=== PATIENT | male | born 1950 | race Caucasian/White ===

== ENCOUNTER 2024-11-21 11:11 | Inpatient (IN) | payer OTHER, MEDICAID ==
[~2024-11-21] VITALS: Ht 172.7 cm; Wt 73.4 kg
--- NOTE | 2024-11-21 11:50 | ED.PDOC ---
SOB-HPI HPI Comments 74 year old male presents to the ED with a chief complaint of shortness of breath onset today (11/21/24). Patient states he had LT knee surgery 3 days, woke up today experiencing nausea, vomiting, fever, chills, shortness of breath, chest pressure. Upon ED arrival, O2 sat was 95% on RA. PMHx COPD, lung cancer. Denies dizziness, headache, blurry vision, abdominal pain, diarrhea, constipation, dysuria. No other symptoms or modifying factors present at this time. Chief Complaint: Shortness of Breath Time Seen by MD: 11:35 Primary Care Provider: YOANA Crockett notes: Medications, Allergies Information Source: Patient Mode of Arrival: Ambulatory Severity: Moderate Timing: Hours Duration: Since onset Context: At Rest PE Risk Factors: Recent Surgery (Lt knee surgery 3 days ago) History of: COPD Prehospital treatment: None Associated Signs and Symptoms: Chest Pain Quality: Pressure Radiation: No Radiation Location: Chest (L) If cough with SOB: Non-Productive Past Medical History PAST MEDICAL HISTORY: Cancer (lung), COPD Surgical History (Other): LT knee surgery partial lobectomy Family History Family History: Unknown Social History Smoker: Non-Smoker Alcohol: Denies ETOH Use Drugs: Denies Drug Use Lives In: Home Constitutional: reports: chills, fever; denies: diaphoresis, fatigue, malaise, sweats, weakness, others EENTM: denies: blurred vision, double vision, ear bleeding, ear discharge, ear drainage, ear pain, ear ringing, eye pain, eye redness, hearing loss, mouth pain, mouth swelling, nasal discharge, nose bleeding, nose congestion, nose pain, photophobia, tearing, throat pain, throat swelling, voice changes, others Respiratory: reports: shortness of breath; denies: cough, hemoptysis, orthopnea, SOB at rest, SOB with excertion, stridor, wheezing, others Cardiovascular: reports: chest pain; denies: dizzy spells, diaphoresis, Dyspnea on exertion, edema, irregular heart beat, left arm pain, lightheadedness, palpitations, PND, syncope, others Gastrointestinal: reports: nausea, vomiting; denies: abdomen distended, abdominal pain, blood streaked bowels, constipated, diarrhea, dysphagia, difficulty swallowing, hematemesis, melena, poor appetite, poor fluid intake, rectal bleeding, rectal pain, others Genitourinary: denies: burning, dysuria, flank pain, frequency, hematuria, incontinence, penile discharge, penile sore, pain, testicle pain, testicle swelling, urgency, others Neurological: denies: dizziness, fainting, headache, left sided numbness, left sided weakness, numbness, paresthesia, pre-existing deficit, right sided numbness, right sided weakness, seizure, speech problems, tingling, tremors, weakness, others Musculoskeletal: denies: back pain, gout, joint pain, joint swelling, muscle pain, muscle stiffness, neck pain, others Integumetry: denies: bruises, change in color, change in hair/nails, dryness, laceration, lesions, lumps, rash, wounds, others Allergic/Immunocompromised: denies: Difficulty Healing, Frequent Infections, Hives, Itching, others Hematologic/Lymphatic: denies: anemia, blood clots, easy bleeding, easy bruising, swollen glands, others Endocrine: denies: excessive hunger, excessive sweating, excessive thirst, excessive urination, flushing, intolerance to cold, intolerance to heat, unexplained weight gain, unexplained weight loss, others Psychiatric: denies: anxiety, bipolar disorder, depression, hopeless, panic disorder, schizophrenia, sleepless, suicidal, others All Other Systems: Reviewed and Negative Physical Exam General Appearance: Normal HEENT: Normal ENT Inspection, Pharynx Normal, TMs Normal Neck: Full Range of Motion, Non-Tender, Normal, Normal Inspection Respiratory: Chest Non-Tender, Other (RT side diminished breath sounds) Cardiovascular: No Edema, No JVD, No Murmur, No Gallop, Normal Peripheral Pulses, Regular Rate/Rhythm Breast Exam: Deferred Gastrointestinal: No Organomegaly, Non Tender, No Pulsatile Mass, Normal Bowel Sounds, Soft Genitalia: Deferred Pelvic: Deferred Rectal: Deferred Extremities: No calf tenderness, Normal capillary refill, Normal inspection, Normal range of motion, Non-tender, No pedal edema Musculoskeletal : Apperance: Normal Neurologic: Alert, central office installer II-XII nml as Tested, No Motor Deficits, Normal Affect, Normal Mood, No Sensory Deficits Cerebellar Function: Normal Reflexes: Normal Skin: Dry, Normal Color, Warm Lymphatic: No Adenopathy Was a procedure done? Was a procedure done?: No Differential Dx Differential Diagnosis: Anxiety, Asthma, Bronchitis, Cardiogenic Shock, CHF, COPD, Dysrhythmia, Myocardial infarction, Panic Attack, Pneumonia, Pneumothorax, Pulmonary Embolism, Respiratory Distress X-Ray, Labs, Meds, VS Vital Signs Date Time Temp Pulse Resp B/P (MAP) Pulse Ox O2 Delivery O2 Flow Rate FiO2 11/21/24 14:07 98.4 100 18 138/84 (102) 95 98.4 11/21/24 11:34 126 11/21/24 11:22 24 95 Room Air* 0 21 11/21/24 11:22 98.9 138 24 127/86 (100) 95 98.9 Lab Test 11/21/24 14:56 11/21/24 11:35 Range/Units White Blood Count Pending 18.7 H 4.4-10.8 10^3/uL Red Blood Count Pending 5.72 4.5-5.90 10^6/uL Hemoglobin Pending 17.6 H 13.5-17.5 g/dL Hematocrit Pending 51.9 41.0-53.0 % Mean Corpuscular Volume Pending 90.8 80.0-100.0 fL Mean Corpuscular Hemoglobin Pending 30.8 28.0-32.0 pg Mean Corpuscular Hemoglobin Concent Pending 33.9 32.0-36.0 g/dL Red Cell Distribution Width Pending 14.7 H 11.8-14.3 % Platelet Count Pending 268 140-450 10^3/uL Mean Platelet Volume Pending 7.9 6.9-10.8 fL Neutrophils (%) (Auto) Pending 88.9 H 37.0-80.0 % Lymphocytes (%) (Auto) Pending 5.1 L 10.0-50.0 % Monocytes (%) (Auto) Pending 5.7 0.0-12.0 % Basophils (%) (Auto) Pending 0.3 0.0-2.0 % Neutrophils # (Auto) Pending 16.6 H 1.6-8.6 10 ^3/uL Lymphocytes # (Auto) Pending 0.9 0.4-5.4 10 ^3/uL Monocytes # (Auto) Pending 1.1 0-1.3 10 ^3/uL Sodium Level Pending 143 136-145 mmol/L Potassium Level Pending 4.3 3.5-5.1 mmol/L Chloride Level Pending 104 98-107 mmol/L Carbon Dioxide Level Pending 28 20-31 mmol/L Anion Gap Pending 11 5-15 Blood Urea Nitrogen Pending 12 9-23 mg/dL Creatinine Pending 1.21 0.700-1.30 mg/dL Glomerular Filtration Rate Calc Pending 63 >90 mL/min BUN/Creatinine Ratio Pending 9.9 L 10.0-20.0 Serum Glucose Pending 133 H 74-106 mg/dL Lactic Acid Level Pending Calcium Level Pending 10.3 8.7-10.4 mg/dL Total Bilirubin Pending Aspartate Amino Transferase (AST) Pending Alanine Aminotransferase (ALT) Pending Alkaline Phosphatase Pending Total Protein Pending Albumin Pending Eosinophils (%) (Auto) 0.0 0.0-7.0 % Eosinophils # (Auto) 0 0-0.8 10 ^3/uL Basophils # (Auto) 0.1 0-0.2 10 ^3/uL Nucleated Red Blood Cells 0.1 % Troponin I High Sensitivity 7 </=54 ng/L Time of 1ST Reevaluation: 12:05 Reevaluation 1ST: Unchanged Time of 2ND Reevaluation: 14:44 Reevaluation 2ND: Improved Patient Education/Counseling: Diagnosis, Treatment, Prognosis, Need For Follow Up Family Education/Counseling: No Family Present Additional Information The following tests were ordered, and results were reviewed by me: CBC, BMP, CT ANGIO CHEST CONTRAST, EKG, TROP I reviewed and agreed with the following test results read by other providers: , CT ANGIO CHEST CONTRAST I discussed treatment and results with medical personnel and: patient Comprehensive systems review obtained and negative except for what is stated in the HPI. SEPSIS Sepsis Screen Date sepsis recognized/suspect: Nov 21, 2024 Time Sepsis recognized/suspect: 1122 Recent Procedure: No On Antibiotic Therapy: No Respiratory Rate >20: No Heart Rate >90: Yes (138) Temp<36 C (96.8 F) or >38.3 C: No SBP <90 or MAP <65 mmHG: No New Acute Mental Status Change: No Is the patient on CPAP, BIPAP,: No Physician Orders Ct Angio Chest Contrast (11/21/24 11:27) Continuous Ekg Monitoring 08,12,16,20,00,04 (11/21/24 11:27) Electrocardigram (11/21/24 11:27) Complete Blood Count (11/21/24 14:42) Comprehensive Metabolic Panel (11/21/24 14:42) Urinalysis (11/21/24 14:42) Accucheck (11/21/24 14:42) Lactated Ringer's (11/21/24 14:45) Blood Culture (11/21/24 14:42) Vancomycin 1gm/200ml Pm (11/21/24 14:45) Lactic Acid W/ Reflex Order (11/21/24 16:00) Cefepime 1gm/ 50ml (Maxipime 1gm/50ml) (11/21/24 22:00) Notify Md If Map <65 Or Bp<90 (11/21/24 14:42) If Map<65 Start Vasopressor (11/21/24 14:42) Vital Signs Date Time Temp Pulse Resp B/P (MAP) Pulse Ox O2 Delivery O2 Flow Rate FiO2 11/21/24 14:07 98.4 100 18 138/84 (102) 95 98.4 11/21/24 11:34 126 11/21/24 11:22 24 95 Room Air* 0 21 11/21/24 11:22 98.9 138 24 127/86 (100) 95 98.9 Laboratory Tests Test 11/21/24 11:35 11/21/24 14:56 White Blood Count 18.7 10^3/uL (4.4-10.8) H Pending Lactic Acid Level Pending Reassessment Post Fluid SEPSIS FOCUS EXAM(REASSESSMENT Sepsis reassessment focused exam completed. Date: 11/21/24 Time 14:44 Departure 1 Departure Time of Disposition: 14:43 Impression: Primary Impression: Pneumonitis Additional Impression: Sepsis Qualified Codes: A41.9 - Sepsis, unspecified organism Disposition: 09 ADMITTED INPATIENT Admit to: Tele Condition: Serious Discharged With: Self Critical Care Note Critical Care Time?: Yes (55 min-critical care time only) Critical care comment: Due to concerns for patients condition deteriorating, the care required my highest level of attention and readiness to intervene. I assessed the patient, reviewed the medical records, ordered the appropriate tests and treatments, then reassessed for results and responsiveness. I communicated with medical personnel and consultants and formulated a plan of care. Total critical care time excludes any procedures Stability Stability form required: No Heart Score Heart Score: Heart Score Response (Comments) Value History N/A 0 EKG N/A 0 Age N/A 0 Risk Factors N/A 0 Troponin N/A 0 Total 0 I personally scribed for BLADE WILKES MD ([email or web address]) on 11/21/24 at 11:50. Electronically submitted by Shobha Sotelo ([email or web address]). I personally scribed for BLADE WILKES MD ([email or web address]) on 11/21/24 at 11:58. Electronically submitted by Shobha Sotelo ([email or web address]). BLADE WILKES MD Nov 21, 2024 11:50
[2024-11-21 12:02] LABS: Chloride 104 mmol/L (98-107); Potassium 4.3 mmol/L (3.5-5.1); Sodium 143 mmol/L (136-145)
[2024-11-21 12:03] LABS: Anion Gap 11 (5-15); Basophils # (auto) 0.1 10 ^3/uL (0-0.2); Basophils % (auto) 0.3 % (0.0-2.0); Calcium 10.3 mg/dL (8.7-10.4); Carbon Dioxide 28 mmol/L (20-31); Eosinophils # (auto) 0 10 ^3/uL (0-0.8); Hematocrit 51.9 % (41.0-53.0); Hemoglobin 17.6 g/dL (13.5-17.5); Lymphocytes # (auto) 0.9 10 ^3/uL (0.4-5.4); Lymphocytes % (auto) 5.1 % (10.0-50.0); Mean Corpuscular Hemoglobin 30.8 pg (28.0-32.0); Mean Corpuscular Hgb Conc. 33.9 g/dL (32.0-36.0); Mean Corpuscular Volume 90.8 fL (80.0-100.0); Monocytes # (auto) 1.1 10 ^3/uL (0-1.3); Monocytes % (auto) 5.7 % (0.0-12.0); Neutrophils # (auto) 16.6 10 ^3/uL (1.6-8.6); Neutrophils % (auto) 88.9 % (37.0-80.0); Nucleated Red Blood Cells % 0.1 %; Platelet Count (auto) 268 10^3/uL (140-450); Red Blood Cells 5.72 10^6/uL (4.5-5.90); Red Cell Distribution Width 14.7 % (11.8-14.3); White Blood Cell 18.7 10^3/uL (4.4-10.8)
[2024-11-21 12:08] LABS: BUN/Creatinine Ratio 9.9 (10.0-20.0); Blood Urea Nitrogen 12 mg/dL (9-23)
[2024-11-21 12:09] LABS: Glucose 133 mg/dL (74-106)
[2024-11-21] MEDS: IOHEXOL 350 MG/ML 100ML IJ ONE (13:08)
--- NOTE | 2024-11-21 14:33 | DVH ---
CTA Chest with intravenous contrast INDICATION: r/o PE, sob post knee surgery COMPARISON: None TECHNIQUE: Multidetector spiral CTA of the chest was performed of the chest with intravenous contrast . PULMONARY ANGIOGRAPHY PROTOCOL was utilized using a bolus-tracking technique centered on the main p ulmonary artery. Axial, coronal and sagittal multiplanar and MIP reformats were performed. Radiation Dose : 1. Chest: CTDI volume is 13.8 mGy. Dose-length product is 549 mGy*cm The dose indicators for CT are the volume Computed Tomography (CT) Dose Index (CTDIvol) and the Dose Length Product (DLP), and are measured in units of mGy and mGy-cm, respectively. These indicators are not patient dose, but values generated from the CT scanner acquisition factors. The report includes radiation exposure data for exposures received during this examination. Findings: Pulmonary artery: No pulmonary embolism Lower neck: Normal thyroid. Lungs: Severe centrilobular emphysema. Nodular density in the right upper lobe measures up to 2.1 cm. Multiple additional nodular densities are scattered throughout both lungs, most prominent in the lef t upper lobe, which may reflect infectious/inflammatory process. Heart/Vascular Structures: Normal heart size. No pericardial effusion. Lymph Nodes: No adenopathy Pleura: No pleural effusion or significant pneumothorax. Musculoskeletal: No acute osseous abnormality. Soft tissues: Normal. Upper abdomen: Cholelithiasis. IMPRESSION: 1. No pulmonary embolism. 2. Severe centrilobular emphysema. 3. Nodular density in the right upper lobe measures up to 2.1 cm. Multiple smaller additional nodular densities are scattered throughout both lungs, most prominent in the left upper lobe, which may refl ect infectious/inflammatory process. Recommend follow-up noncontrast chest CT in 2-4 weeks to evaluat e for stability.
[2024-11-21 15:14] LABS: Basophils # (auto) 0.1 10 ^3/uL (0-0.2); Eosinophils # (auto) 0 10 ^3/uL (0-0.8); Monocytes # (auto) 1.2 10 ^3/uL (0-1.3)
[2024-11-21 15:15] LABS: Basophils % (auto) 0.4 % (0.0-2.0); Hemoglobin 17.8 g/dL (13.5-17.5); Lymphocytes # (auto) 1.2 10 ^3/uL (0.4-5.4); Lymphocytes % (auto) 6.2 % (10.0-50.0); Mean Corpuscular Hemoglobin 30.4 pg (28.0-32.0); Mean Corpuscular Hgb Conc. 33.5 g/dL (32.0-36.0); Mean Corpuscular Volume 90.9 fL (80.0-100.0); Monocytes % (auto) 5.8 % (0.0-12.0); Neutrophils # (auto) 17.5 10 ^3/uL (1.6-8.6); Neutrophils % (auto) 87.6 % (37.0-80.0); Nucleated Red Blood Cells % 0.1 %; Platelet Count (auto) 257 10^3/uL (140-450); Red Blood Cells 5.83 10^6/uL (4.5-5.90); Red Cell Distribution Width 15.2 % (11.8-14.3)
[2024-11-21 15:28] VITALS: RESP 16
[2024-11-21] MEDS: LACTATED RINGER'S 2,050 ML IV ONE (15:31)
[2024-11-21] MEDS: VANCOMYCIN 1GM/200ML PM 200 ML IV ONE ×2 (15:32→23:16)
[2024-11-21 15:33] LABS: Alanine Aminotransferase 13 U/L (7-40); Albumin 4.6 g/dL (3.2-4.8); Alkaline Phosphatase 172 U/L (46-116); Anion Gap 10 (5-15); Aspartate Aminotransferase 16 U/L (<34); Blood Urea Nitrogen 13 mg/dL (9-23); Carbon Dioxide 28 mmol/L (20-31); Chloride 103 mmol/L (98-107); Glucose 123 mg/dL (74-106); Potassium 4.7 mmol/L (3.5-5.1); Sodium 141 mmol/L (136-145); Total Protein 7.2 g/dL (5.7-8.2)
[2024-11-21 15:34] LABS: Bilirubin, Total 1.8 mg/dL (0.2-1.0)
[2024-11-21 15:36] LABS: Lactic Acid w/Reflex 2.1 mmol/L (0.4-2.0)
[2024-11-21 17:44] LABS: Urine Bacteria None Seen /hpf (None Seen)
[2024-11-21 17:57] LABS: Urine Blood Negative /uL (Negative); Urine Clarity Clear (Clear); Urine Color Light-Yellow (Yellow); Urine Protein, UAD Negative (Negative); Urine Squamous Epithelial Cell FEW /hpf (<5); Urine Urobilinogen Normal (Negative); Urine WBC 1 /HPF (0-3)
[2024-11-21 17:59] LABS: Urine Specific Gravity > 1.050 (1.001-1.035)
[2024-11-21 19:19] VITALS: PULSE 105; RESP 25; O2SAT 93
[2024-11-21] MEDS: CEFEPIME 1GM/ 50ML 50 ML IV SCH (19:36)
[2024-11-21] MEDS ORDERED: VANCOMYCIN PER PHARMACY 0 MG IV SCH (22:15)
[2024-11-21] MEDS ORDERED: ACETAMINOPHEN 325 MG TAB PO PRN (22:15)
[2024-11-21 22:42] VITALS: BP 120/85; PULSE 90; RESP 24; TEMP 98.3; O2SAT 93
[2024-11-21] MEDS: LACTATED RINGER'S 1,000 ML IV SCH (22:50)
--- NOTE | 2024-11-21 23:25 | DVHHPRES ---
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 Patient reported that he has been feeling short of breath since 1 month ago but it exacerbated in the last 3-4 days with shortness of breath even on less than normal activity ,Functional Class III. Patient reported associated fever and chills in the last 2 days maximum recorded 102 F. he also reports expectoration grayish to brownish black in color which has been ongoing since the last 1 month and the color, consistency in the last 3-4 days remained same but with the amount of expectoration increased. Patient reports a month ago he was diagnosed with a right lung nodule and he underwent a biopsy at [facility] which showed extensive necrosis with interstitial lymphohistiocytic inflammation with granuloma and rare atypical cells. GMS stain also showed growth of some fungi. Patient last saw his cooker mechanic Dr. Fried who recommended the patient to see a specialist at [facility] and his next appointment with the [facility] cooker mechanic is in December. Patient reported that last year in May he fractured his left kneecap following which he had a surgery with the wires in place were put in and about 4 days ago he got a surgery during which some of the hardware was removed. Patient reports tenderness around the left knee around the area of the surgery, there is no oozing. Past medical history: As per HPI Past surgical history: Partial lung lobectomy status post squamous cell carcinoma of the lung, left knee surgery x2 Social history: Patient denied current smoking, alcohol, drug use Home medications: Trelegy Ellipta inhaler, losartan 100 mg, hydrochlorothiazide 25 mg, Ventolin inhaler Review of Systems Review of Systems Patient seen and examined at the bedside Patient currently on 2 L oxygen via nasal cannula, no signs of respiratory distress was able to speak in full sentences and no accessory muscle use Denied chest pain Reported pain in the left knee around the site of the surgery Reported he had a vomiting in the morning earlier which consisted of undigested food particles Allergies: Coded Allergies: NO KNOWN ALLERGIES (Unverified , 12/03/13) Medications Current Medications Medications Dose Ordered Sig/Zuleyka Route Start Time Stop Time Status Last Admin Dose Admin Cefepime HCl 50 ml @ 12.5 mls/hr Q8HR IV 11/21/24 22:00 11/21/24 19:36 12.5 MLS/HR Vancomycin HCl 0 ml @ 0 mls/hr UD IV 11/21/24 22:15 UNV Cefepime HCl 50 ml @ 12.5 mls/hr Q8HR IV 11/22/24 06:00 UNV Acetylcysteine 200 mg Q6HR NEB 11/22/24 00:00 Levalbuterol HCl 0.625 mg Q6HR NEB 11/22/24 00:00 Ipratropium Cope 0.5 mg Q6HR NEB 11/22/24 00:00 Lactated Ringer's 1,000 ml @ 125 mls/hr Q8H IV 11/21/24 22:15 Acetaminophen 650 mg Q6HP PRN PO 11/21/24 22:15 Exam Vital Signs Vital Signs Date Time Temp Pulse Resp B/P (MAP) Pulse Ox O2 Delivery O2 Flow Rate FiO2 11/21/24 22:42 98.3 90 24 120/85 93 2.0 28 98.3 11/21/24 19:19 Nasal Cannula* Exam Gen - no pallor, no icterus, no cyanosis, no clubbing, no LAD, no edema . Skin - Patients skin is warm and dry. HEENT - normocephalic, atraumatic, dry mucous membranes. Neck - full ROM, no LAD, no JVD Pulmonary - B/L moderately diminished breath sounds with mild left lower lobe inspiratory crackles, mild scattered wheezing, no stridor. cardiovascular - regular S1,S2 heard, no added sounds, no murmurs heard. Radial pulses 2+. GI - soft, nontender abdomen. no hepatospleenomegaly. Bowel sounds normoactive Neurological - Patient is A/O X 3 . Bilateral upper extremity strength 5/5, bilateral lower extremity strength 5/5, no facial droop, normal speech, no tremor, no sensory deficiets. Extremities- left lower extremity, pain in the left knee around the site of the surgery Labs/Xrays Labs Test 11/21/24 16:57 11/21/24 15:26 11/21/24 14:56 11/21/24 11:35 Range/Units Lactic Acid Level 1.9 0.4-2.0 mmol/L Urine Color Light-yellow Yellow Urine Clarity Clear Clear Urine pH 7.0 5.0-9.0 Urine Specific [place] > 1.050 H 1.001-1.035 Urine Protein Negative Negative Urine Ketones Negative Negative Urine Blood Negative Negative /uL Urine Nitrite Negative Negative Urine Bilirubin Negative Negative Urine Urobilinogen Normal Negative mg/dL Urine Leukocyte Esterase Negative Negative /uL Urine RBC 1 0 - 3 /hpf Urine Microscopic WBC 1 0-3 /HPF Urine Squamous Epithelial Cells Few <5 /hpf Urine Bacteria None seen None Seen /hpf Urine Glucose Normal Normal mg/dL White Blood Count 20.0 H 4.4-10.8 10^3/uL Red Blood Count 5.83 4.5-5.90 10^6/uL Hemoglobin 17.8 H 13.5-17.5 g/dL Hematocrit 53.0 41.0-53.0 % Mean Corpuscular Volume 90.9 80.0-100.0 fL Mean Corpuscular Hemoglobin 30.4 28.0-32.0 pg Mean Corpuscular Hemoglobin Concent 33.5 32.0-36.0 g/dL Red Cell Distribution Width 15.2 H 11.8-14.3 % Platelet Count 257 140-450 10^3/uL Mean Platelet Volume 8.0 6.9-10.8 fL Neutrophils (%) (Auto) 87.6 H 37.0-80.0 % Lymphocytes (%) (Auto) 6.2 L 10.0-50.0 % Monocytes (%) (Auto) 5.8 0.0-12.0 % Eosinophils (%) (Auto) 0.0 0.0-7.0 % Basophils (%) (Auto) 0.4 0.0-2.0 % Neutrophils # (Auto) 17.5 H 1.6-8.6 10 ^3/uL Lymphocytes # (Auto) 1.2 0.4-5.4 10 ^3/uL Monocytes # (Auto) 1.2 0-1.3 10 ^3/uL Eosinophils # (Auto) 0 0-0.8 10 ^3/uL Basophils # (Auto) 0.1 0-0.2 10 ^3/uL Nucleated Red Blood Cells 0.1 % Sodium Level 141 136-145 mmol/L Potassium Level 4.7 3.5-5.1 mmol/L Chloride Level 103 98-107 mmol/L Carbon Dioxide Level 28 20-31 mmol/L Anion Gap 10 5-15 Blood Urea Nitrogen 13 9-23 mg/dL Creatinine 1.18 0.700-1.30 mg/dL Glomerular Filtration Rate Calc 65 >90 mL/min BUN/Creatinine Ratio 11.0 10.0-20.0 Serum Glucose 123 H 74-106 mg/dL Calcium Level 10.0 8.7-10.4 mg/dL Total Bilirubin 1.8 H 0.2-1.0 mg/dL Aspartate Amino Transferase (AST) 16 <34 U/L Alanine Aminotransferase (ALT) 13 7-40 U/L Alkaline Phosphatase 172 H 46-116 U/L Total Protein 7.2 5.7-8.2 g/dL Albumin 4.6 3.2-4.8 g/dL Troponin I High Sensitivity 7 </=54 ng/L Assessment/Plan Assessment/Plan Acute hypoxic respiratory failure Pneumonia likely due to Gram+/- bacteria H/O squamous cell carcinoma s/p partial lobectomy H/O right lung nodule COPD exacerbation likely due to pneumonia - CT lung shows severe centrilobular emphysema, right upper lobe nodule measuring 2.1 cm, multiple additional nodular densities scattered throughout both the lungs more on the left upper lobe - IV antibiotics, vancomycin and cefepime - IV fluids - duo nebs q.6 hours - Mucomyst q.6 hours - respiratory sputum culture pending - transbronchial biopsy in August 2024 at [facility] from the right lung nodule shows extensive necrosis with interstitial lymphohistiocytic inflammation granuloma and rare atypical cells Left knee pain S/p surgery for hardware removal 4 days ago done at [facility] by Dr. Carlos Eduardo kohler Possible sepsis post surgery Rule out osteomyelitis - IV antibiotics vancomycin and cefepime - IV fluids - CT left knee without contrast - blood cultures pending - cultures pending Cholelithiasis - no abdominal pain PUD prophylaxis: Protonix DVT prophylaxis: Enoxaparin Goals of care discussed with the patient for over 23 minutes. Full code Time spent: 41 minute Plan discussed with Dr. Warren Plan discussed with: Patient My Orders Orders - THOR GODOY RESIDENT Procedure Category Date Status Time Admit ADMIT 11/21/24 Transmitted 22:01 Oxygen By Nasal RT 11/21/24 Transmitted Cannula 22:01 Stat Ekg For Chest CHRISTIANO 11/21/24 In Process Pain 22:01 Notify Md Of Changes CHRISTIANO 11/21/24 In Process From Base 22:01 Street Light Servicer For CHRISTIANO 11/21/24 In Process 24 Hours 22:01 Emergency Dysrhythmia CHRISTIANO 11/21/24 In Process Protocol 22:01 Vancomycin Per PHA 11/21/24 Pending Pharmacy 22:15 Cefepime 2gm/50ml Ns PHA 11/22/24 Pending (Maxipime 2gm/50ml) 06:00 Respiratory Culture KASH 11/21/24 Logged W/ Gs 22:01 Acetylcysteine PHA 11/22/24 In Process Inhalation 20% 00:00 Levalbuterol Hcl PHA 11/22/24 In Process (Xopenex Medneb) 00:00 Ipratropium Medneb PHA 11/22/24 In Process (Atrovent Medneb) 00:00 Lactated Ringer's PHA 11/21/24 In Process 22:15 Acetaminophen Tablet PHA 11/21/24 In Process (Tylenol Tablet) 22:15 Rapid Influenza A&B LAB 11/21/24 Logged 22:01 Covid19 Antigen L[facility] LAB 11/21/24 Logged Cardiac DIET 11/22/24 Transmitted Diet-2gna,Lofat,Lochol Breakfast Complete Blood Count LAB 11/22/24 Verified 04:00 Comprehensive LAB 11/22/24 Verified Metabolic Panel 04:00 Vancomycin 1gm/200ml PHA 11/21/24 In Process Pm 23:00 Date of Service: Nov 21, 2024 Billing Provider: TRINY WARREN MD Common Visit Codes: 57228-CVFANDL INP/OBS CARE (HIGH) Secondary Visit Codes: 21676-XSVVNVOX CARE PLAN 30 MINUTES THOR GODOY RESIDENT Nov 21, 2024 23:25
[2024-11-21] MEDS ORDERED: IBUPROFEN 600 MG TAB PO PRN (23:30)
[2024-11-21] MEDS: IPRATROPIUM BROM 0.5 MG/2.5ML INH SOL NEB SCH (23:43)
[2024-11-21] MEDS: LEVALBUTEROL HCL 1.25 MG/3 ML NEB NEB SCH (23:43)
[2024-11-21] MEDS: ACETYLCYSTEINE 20%(200MG/ML) SOL 4ML NEB SCH (23:43)
[2024-11-21 23:44] VITALS: PULSE 83; RESP 18; O2SAT 94
[2024-11-21 23:53] VITALS: PULSE 81; RESP 18; O2SAT 96
[2024-11-22] VITALS (16 sets, daily range): BP systolic 113–155; BP diastolic 67–94; PULSE 81–106; RESP 14–19; TEMP 97.7–98.3; O2SAT 91–100
[2024-11-22 02:32] LABS: COVID19 ANTIGEN SOFIA FIA NEGATIVE (NEGATIVE); Rapid Influenza A Negative (Negative); Rapid Influenza B Negative (Negative)
--- NOTE | 2024-11-22 04:58 | DVH ---
INDICATION: s/p surgery, sepsis, possible osteo COMPARISON: None TECHNIQUE: CT of the right knee was performed without contrast. Volume transverse images were obtaine d and reconstructed in multiple planes using bone and soft tissue algorithms. Radiation Dose Information: CT Dose: CTDI volume is 7.75 mGy. Dose-length product is 301.96 mGy*cm FINDINGS: The alignment is normal. The joint spaces are normal. There is no fracture, dislocation or aggressive osseous lesion. Small joint effusion. Small volume subcutaneous gas at the knee joint at the level of the patella. Postsurgical changes of the patella. IMPRESSION: No CT findings to suggest osteomyelitis.
[2024-11-22] MEDS: PANTOPRAZOLE 40 MG TAB PO SCH (05:05)
[2024-11-22] MEDS ORDERED: CEFEPIME 2GM/50ML NS 50 ML IV SCH (06:00)
[2024-11-22 10:10] LABS: Basophils # (auto) 0.1 10 ^3/uL (0-0.2); Basophils % (auto) 0.6 % (0.0-2.0); Eosinophils # (auto) 0.1 10 ^3/uL (0-0.8); Hematocrit 44.2 % (41.0-53.0); Hemoglobin 14.9 g/dL (13.5-17.5); Lymphocytes # (auto) 1.1 10 ^3/uL (0.4-5.4); Lymphocytes % (auto) 11.8 % (10.0-50.0); Mean Corpuscular Hemoglobin 30.8 pg (28.0-32.0); Mean Corpuscular Hgb Conc. 33.8 g/dL (32.0-36.0); Mean Corpuscular Volume 91.1 fL (80.0-100.0); Monocytes # (auto) 0.6 10 ^3/uL (0-1.3); Monocytes % (auto) 6.4 % (0.0-12.0); Neutrophils # (auto) 7.5 10 ^3/uL (1.6-8.6); Neutrophils % (auto) 80.2 % (37.0-80.0); Platelet Count (auto) 213 10^3/uL (140-450); Red Blood Cells 4.85 10^6/uL (4.5-5.90); Red Cell Distribution Width 14.8 % (11.8-14.3); White Blood Cell 9.3 10^3/uL (4.4-10.8)
[2024-11-22] MEDS: methylPREDNISolone SOD SUCC 40 MG/ML VL IV ONE (10:17)
[2024-11-22] MEDS: ENOXAPARIN SOD 40 MG/0.4 ML SYRINGE SC SCH (10:21)
[2024-11-22] MEDS: LOSARTAN POTASSIUM 50 MG TAB PO SCH (10:21)
[2024-11-22 10:30] LABS: Alanine Aminotransferase < 9 U/L (7-40); Albumin 3.9 g/dL (3.2-4.8); Alkaline Phosphatase 134 U/L (46-116); Anion Gap 9 (5-15); Aspartate Aminotransferase 11 U/L (<34); Blood Urea Nitrogen 12 mg/dL (9-23); Calcium 9.5 mg/dL (8.7-10.4); Carbon Dioxide 26 mmol/L (20-31); Chloride 106 mmol/L (98-107); Glucose 156 mg/dL (74-106); Sodium 141 mmol/L (136-145); Total Protein 6.1 g/dL (5.7-8.2)
[2024-11-22 10:31] LABS: Bilirubin, Total 2.1 mg/dL (0.2-1.0)
[2024-11-22] MEDS ORDERED: FLUT1AER3 IN (10:50)
[2024-11-22] MEDS: cefTRIAXone 1GM/50ML D5W 50 ML IV ONE (10:51)
[2024-11-22] MEDS ORDERED: VANCOMYCIN 750mg/150ml 150 ML IV SCH (11:00)
[2024-11-22] MEDS: ACETAMINOPHEN 325 MG TAB PO SCH (12:00)
--- NOTE | 2024-11-22 12:08 | ECG ---
[facility] Test Date: 2024-11-21 Test Time: 11:30:33 Pat Name: ROMAIN SATNTON Department: ER Room: 0296T B Gender: M Pipeline Controller: DR MCQUEENB: [id number] Requested By: BLADE WILKES Order Number: [id number] Reading MD: Joby Wayne Measurements Intervals [place] Rate: 126 P: 77 AL: 172 QRS: 161 QRSD: 92 T: 28 QT: 298 QTc: 432 Interpretive Statements Sinus tachycardia Anterior infarct, old ST elevation, consider inferior injury Electronically Signed On 11-23-2024 22:46:23 PDT by Joby Wayne Please click the below link to view image of tracing.
[2024-11-22] MEDS: AZITHROMYCIN 500MG/ 250ML 250 ML IV ONE (13:26)
[2024-11-22] MEDS ORDERED: ATOR40TA52 PO (15:19)
[2024-11-22] MEDS ORDERED: DEXL60CA4 PO (15:19)
[2024-11-22] MEDS ORDERED: LOSA-535 PO (15:19)
--- NOTE | 2024-11-22 17:22 | DVHCONRES ---
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 Patient presented to the ED with chief complaint of worsening shortness of breaths. The patient states that he has been feeling shortness of breath for the last month but has been exacerbated in the past four days associated with shortness of breaths, fever of 102F and chills. The patient also reported expectoration brownish, yellowish in color that has been going on for the past month but that has increased in volume in the past four days. The patient also reported that one month ago he was diagnosed with a right lung nodule and he underwent a biopsy at [facility] which showed extensive necrosis with interstitial lymphohistiocytic inflammation with granuloma and rare atypical cells. G stain also showed growth of some fungi. At that time, the patient was instructed to follow up with ed educational aide at [facility] to consider starting treatment for fungal infection but patient stated that next appointment was in December of 2024. The patient also reported that on May of 2024 he fractured his left kneecap and he had a surgery with wires placement in the left kneecap at that time and four days ago before coming to the ED he got a surgery for hardware removal. Patient still reports pain in the left knee but no significant cellu litis or infection appreciated at this time. Upon admission, initial WBC was 18.7-20.0, lactic acid was elevated and patient was requiring 2 L of oxygen through nasal cannula. Initial screening for flu, COVID was negative. Blood cultures has been negative. Troponins were negative as well. CT angio of the chest was performed to rule out pulmonary embolism due to recent surgery and immobilization. Results showed no pulmonary embolism, severe centrilobular emphysema, nodular densities in the right upper lobe measuring up to 2.1 cm with multiple smaller additional nodular densities throughout both lungs. Infectious Disease was consulted due to previous history of biopsy showing fungal growth. Past Medical History MPD, emphysema, squamous cell carcinoma of the left lung, status poor partial lobectomy of the left lung, hypertension, dyslipidemia Past Surgical History Status post partial lobectomy of the left lung two years ago. Left knee surgery x2. First one on May of 2024 and 2nd one five days ago. Family History: Diabetes mellitus G8 MOTHER FH: lymphoma, malignant G8 FATHER Family History Noncontributory Social History Patient denies smoking, alcohol consumption or illicit drug abuse. Allergies: Coded Allergies: NO KNOWN ALLERGIES (Unverified , 12/03/13) Home Meds Reported Medications Atorvastatin Calcium (ATORVASTATIN CALCIUM) 40 Mg Tab, 1 TAB PO DAILY, #30 TAB 5 Refills 11/22/24 Losartan Potassium (Losartan Potassium) 100 Mg Tab, 1 TAB PO DAILY, #30 TAB 5 Refills 11/22/24 Dexlansoprazole (Dexilant) 60 Mg Cap, 60 MG PO DAILY, CAP 11/22/24 Geyzstwfikt-Aomeaapjrdtu-Xohro (Trelegy Ellipta 100-62.5-25 Mcg/INH) 1 Aer Aer, 1 AER IN, AER 11/22/24 Current Medications Current Medications Medications (Trade) Dose Ordered Sig/Zuleyka Route PRN Reason Start Time Stop Time Status Last Admin Cefepime HCl 50 ml @ 12.5 mls/hr Q8HR IV 11/21/24 22:00 11/22/24 08:23 DC 11/22/24 05:05 Vancomycin HCl 0 ml @ 0 mls/hr UD IV 11/21/24 22:15 11/22/24 10:03 DC Cefepime HCl 50 ml @ 12.5 mls/hr Q12H IV 11/22/24 06:00 11/22/24 10:03 DC Acetylcysteine (Mucomyst Inhalation 20%) 200 mg Q6HR NEB 11/22/24 00:00 11/22/24 11:45 Levalbuterol HCl (Xopenex Medneb) 0.625 mg Q6HR NEB 11/22/24 00:00 11/22/24 11:45 Ipratropium [place] (Atrovent Medneb) 0.5 mg Q6HR NEB 11/22/24 00:00 11/22/24 11:45 Lactated Ringer's 1,000 ml @ 125 mls/hr Q8H IV 11/21/24 22:15 11/21/24 22:50 Acetaminophen (Tylenol Tablet) 650 mg Q6HP PRN PO PAIN SCALE 1-3 OR TEMP>100.4 11/21/24 22:15 Pantoprazole Sodium (Protonix Tablet) 40 mg DAILY@0600 PO 11/22/24 06:00 11/22/24 05:05 Enoxaparin Sodium (Lovenox) 40 mg DAILY SC 11/22/24 10:00 11/22/24 10:21 Ibuprofen (Motrin Tablet) 600 mg Q12HP PRN PO MODERATE PAIN (4-6 PAIN SCALE) 11/21/24 23:30 Losartan Potassium (Cozaar Tablet) 100 mg DAILY PO 11/22/24 10:00 11/22/24 10:21 Methylprednisolone Sodium Succinate (Solu Medrol) 40 mg DAILY IV 11/23/24 10:00 Vancomycin HCl 150 ml @ 150 mls/hr Q12H IV 11/22/24 11:00 11/22/24 10:03 DC Ceftriaxone Sodium 50 ml @ 100 mls/hr DAILY@09 IV 11/23/24 09:00 Azithromycin 250 ml @ 125 mls/hr DAILY IV 11/23/24 10:00 Acetaminophen (Tylenol Tablet) 650 mg Q6HP PO 11/22/24 12:00 Review of Systems ROS Constitutional: Denies weight loss, fever and chills. HEENT: Denies changes in vision and hearing. Respiratory: Reports shortness of breath, cough, chest tightness Cardiovascular: Denies chest discomfort or palpitations GI: Denies abdominal pain, nausea, vomiting and diarrhea. : Denies dysuria and urinary frequency. Musculoskeletal: Reports left knee pain Skin: Denies rash and pruritus. Neurological: Denies dizziness, headache, vision or hearing problems Vital Signs Vital Signs Date Time Temp Pulse Resp B/P (MAP) Pulse Ox O2 Delivery O2 Flow Rate FiO2 11/22/24 12:59 98.3 90 17 155/90 (111) 93 98.3 11/22/24 07:26 Nasal Cannula 2.0 11/22/24 07:26 28 Physical Exam Physical Examination General: Patient alert and oriented in person, place and time. Patient following commands. HEENT: Normocephalic, atraumatic, moist mucous membranes Respiratory/pulmonary: There is decreased breath sounds bilaterally with expiratory secretion sounds. No wheezes currently on 2 L of oxygen through nasal cannula Cardiovascular: Normal heart sounds S1 and S2 with no associated murmurs Abdomen: Abdomen nondistended, there is no pain to palpation in any of the abdominal quadrants, no palpable masses. Extremities: Left knee has a bandage with no secretions or erythema at this time. There is no peripheral edema present at the lower extremities. Skin: No rashes or pruritus, there is no sacral edema present at this time. Neurological: Intact cranial nerves with no focal neurologic deficits Labs/Diagnostic Data Labs Test 11/22/24 09:40 11/22/24 01:25 11/21/24 16:57 11/21/24 15:26 Range/Units White Blood Count 9.3 # 4.4-10.8 10^3/uL Red Blood Count 4.85 4.5-5.90 10^6/uL Hemoglobin 14.9 # 13.5-17.5 g/dL Hematocrit 44.2 # 41.0-53.0 % Mean Corpuscular Volume 91.1 80.0-100.0 fL Mean Corpuscular Hemoglobin 30.8 28.0-32.0 pg Mean Corpuscular Hemoglobin Concent 33.8 32.0-36.0 g/dL Red Cell Distribution Width 14.8 H 11.8-14.3 % Platelet Count 213 140-450 10^3/uL Mean Platelet Volume 7.6 6.9-10.8 fL Neutrophils (%) (Auto) 80.2 H 37.0-80.0 % Lymphocytes (%) (Auto) 11.8 10.0-50.0 % Monocytes (%) (Auto) 6.4 0.0-12.0 % Eosinophils (%) (Auto) 1.0 0.0-7.0 % Basophils (%) (Auto) 0.6 0.0-2.0 % Neutrophils # (Auto) 7.5 1.6-8.6 10 ^3/uL Lymphocytes # (Auto) 1.1 0.4-5.4 10 ^3/uL Monocytes # (Auto) 0.6 0-1.3 10 ^3/uL Eosinophils # (Auto) 0.1 0-0.8 10 ^3/uL Basophils # (Auto) 0.1 0-0.2 10 ^3/uL Nucleated Red Blood Cells 0.0 % Sodium Level 141 136-145 mmol/L Potassium Level 4.0 3.5-5.1 mmol/L Chloride Level 106 98-107 mmol/L Carbon Dioxide Level 26 20-31 mmol/L Anion Gap 9 5-15 Blood Urea Nitrogen 12 9-23 mg/dL Creatinine 0.92 0.700-1.30 mg/dL Glomerular Filtration Rate Calc 87 >90 mL/min BUN/Creatinine Ratio 13.0 10.0-20.0 Serum Glucose 156 H 74-106 mg/dL Calcium Level 9.5 8.7-10.4 mg/dL Total Bilirubin 2.1 H 0.2-1.0 mg/dL Aspartate Amino Transferase (AST) 11 <34 U/L Alanine Aminotransferase (ALT) < 9 7-40 U/L Alkaline Phosphatase 134 H 46-116 U/L Total Protein 6.1 5.7-8.2 g/dL Albumin 3.9 3.2-4.8 g/dL Influenza Type A Antigen Negative Negative Influenza Type B Antigen Negative Negative SARS-CoV-2 Antigen (Rapid) Negative NEGATIVE Lactic Acid Level 1.9 0.4-2.0 mmol/L Urine Color Light-yellow Yellow Urine Clarity Clear Clear Urine pH 7.0 5.0-9.0 Urine Specific [place] > 1.050 H 1.001-1.035 Urine Protein Negative Negative Urine Ketones Negative Negative Urine Blood Negative Negative /uL Urine Nitrite Negative Negative Urine Bilirubin Negative Negative Urine Urobilinogen Normal Negative mg/dL Urine Leukocyte Esterase Negative Negative /uL Urine RBC 1 0 - 3 /hpf Urine Microscopic WBC 1 0-3 /HPF Urine Squamous Epithelial Cells Few <5 /hpf Urine Bacteria None seen None Seen /hpf Urine Glucose Normal Normal mg/dL Test 11/21/24 11:35 Range/Units Troponin I High Sensitivity 7 </=54 ng/L Microbiology Date/Time Source Procedure Growth Status 11/21/24 14:56 Blood Blood Culture - Preliminary NO GROWTH AFTER 24 HOURS OF INCUBATION. Resulted Assessment Assessment/plan Acute hypoxic respiratory failure likely due to bacterial pneumonia, R/O fungal lung infection COPD exacerbation Right upper lobe nodule measuring 2.1cm History of right lung nodule biopsy showing growing fungi, R/O fungal lung infection History of squamous cell carcinoma of the left lung Status post partial lobectomy of the left lung Primary hypertension Dyslipidemia Plan -CT angio of the chest showed no evidence of pulmonary embolism, severe sensory lower emphysema. There is also a nodular densities in the right upper lobe measuring up to 2.1 cm. There are multiple smaller additional nodular densities throughout both lungs. -ordered sputum cultures -continue IV antibiotics ceftriaxone azithromycin -continue methylprednisolone 40 mg IV Qd -order QuantiFERON gold test -check HIV -order Coccidioides antibodies, Aspergillus antibody. -ask documents from [facility] regarding biopsy and specific cultures results (patient had preliminary reports) Goals of care discussed with the patient at bedside for >35min, FULL CODE Plan discussed with Dr. Butler Plan discussed with: Patient NATALI GUZMAN RESIDENT Nov 22, 2024 17:22
--- NOTE | 2024-11-22 18:30 | DVHPNRES ---
Progress Note Date Seen: Nov 22, 2024 Resident Creating Document: DIAMANTE JIMÉNEZ GHAZALA Has the PT tested + for MRSA If YES, has PT been informed?: No Medical Necessity Reason Pt with a Central, PICC or Fol: No Subjective Review of Systems Patient is a 74-year-old male with a past medical history of COPD, emphysema, 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 Patient reported that he has been feeling short of breath since 1 month ago but it exacerbated in the last 3-4 days with shortness of breath even on less than normal activity ,Functional Class III. Patient reported associated fever and chills in the last 2 days maximum recorded 102 F. he also reports expectoration grayish to brownish black in color which has been ongoing since the last 1 month and the color, consistency in the last 3-4 days remained same but with the amount of expectoration increased. Patient reports a month ago he was diagnosed with a right lung nodule and he underwent a biopsy at [facility] which showed extensive necrosis with interstitial lymphohistiocytic inflammation with granuloma and rare atypical cells. GMS stain also showed growth of some fungi. Patient last saw his utility bill complaints investigator Dr. Fried who recommended the patient to see a specialist at [facility] and his next appointment with the [facility] utility bill complaints investigator is in December. Patient reported that last year in May he fractured his left kneecap following which he had a surgery with the wires in place were put in and about 4 days ago he got a surgery during which some of the hardware was removed. Patient reports tenderness around the left knee around the area of the surgery, there is no oozing. Past medical history: As per HPI Past surgical history: Partial lung lobectomy status post squamous cell carcinoma of the lung, left knee surgery x2 Social history: Patient denied current smoking, alcohol, drug use Home medications: Trelegy Ellipta inhaler, losartan 100 mg, hydrochlorothiazide 25 mg, Ventolin inhaler Patient seen and examined at bedside. Patient is complaining of shortness of breaths and chest discomfort. Patient reports: No new complaints Changes from previous H/P or p: No Changes Objective vital signs Vital Sign Date Time Temp Pulse Resp B/P (MAP) Pulse Ox O2 Delivery O2 Flow Rate FiO2 11/22/24 17:00 97.8 90 19 147/90 (837) 91 97.8 11/22/24 07:26 Nasal Cannula 2.0 11/22/24 07:26 28 Total Intake and Output 11/21/24 11/21/24 11/22/24 15:00 23:00 07:00 Intake Total 2250 ml Balance 2250 ml medications Current Medications Medications Dose Ordered Sig/Zuleyka Route Start Time Stop Time Status Last Admin Dose Admin Acetylcysteine 200 mg Q6HR NEB 11/22/24 00:00 11/22/24 11:45 200 MG Levalbuterol HCl 0.625 mg Q6HR NEB 11/22/24 00:00 11/22/24 11:45 0.625 MG Ipratropium [place] 0.5 mg Q6HR NEB 11/22/24 00:00 11/22/24 11:45 0.5 MG Lactated Ringer's 1,000 ml @ 125 mls/hr Q8H IV 11/21/24 22:15 11/22/24 14:15 125 MLS/HR Acetaminophen 650 mg Q6HP PRN PO 11/21/24 22:15 Pantoprazole Sodium 40 mg DAILY@0600 PO 11/22/24 06:00 11/22/24 05:05 40 MG Enoxaparin Sodium 40 mg DAILY SC 11/22/24 10:00 11/22/24 10:21 40 MG Ibuprofen 600 mg Q12HP PRN PO 11/21/24 23:30 Losartan Potassium 100 mg DAILY PO 11/22/24 10:00 11/22/24 10:21 100 MG Methylprednisolone Sodium Succinate 40 mg DAILY IV 11/23/24 10:00 Ceftriaxone Sodium 50 ml @ 100 mls/hr DAILY@09 IV 11/23/24 09:00 Azithromycin 250 ml @ 125 mls/hr DAILY IV 11/23/24 10:00 Acetaminophen 650 mg Q6HP PO 11/22/24 12:00 Examination General Appearance: Alert, Oriented X3, patient was in moderate respiratory distress and could not speak in complete sentences HEENT: Atraumatic, PERRLA, EOMI, Mucous membrane moist/pink Respiratory: Bilateral rhonchi with decreased air entry Cardiovascular: Regular rate, Normal S1, Normal S2, No murmurs, no chest wall tenderness Abdominal: Normal bowel sounds, Soft, No tenderness, No hepatospenomegaly, No masses Extremities: Reports left knee pain Skin: No rashes, No breakdown, No significant lesion Neuro: Normal gait, Normal speech, Strength at 5/5 X4 ext, Normal tone, Sensation intact, Cranial nerves 3-12 NL, Reflexes 2+ Psych/Mental Status: Mental status NL, Mood NL laboratory and microbiology Laboratory Tests 11/22/24 09:40 Test 11/22/24 09:40 Range/Units Serum Glucose 156 H 74-106 mg/dL Microbiology Date/Time Source Procedure Growth Status 11/21/24 14:56 Blood Blood Culture - Preliminary NO GROWTH AFTER 24 HOURS OF INCUBATION. Resulted Labs and/or images reviewed: Labs reviewed by me, Image(s) reviewed by me Problem List/Assessment/Plan Problem List/Assessment/Plan Acute hypoxic respiratory failure, likely due to COPD exacerbation Acute COPD exacerbation, likely due to pneumonia Pneumonia, likely due to Gram-positive/Gram-negative bacteria/fungal Sepsis, likely due to pneumonia History of lung cancer , status post partial lobectomy Current smoker H/O right lung nodule Left knee pain S/p surgery for hardware removal 4 days ago done at [facility] by Dr. Carlos Eduardo kohler Ruled out osteomyelitis Cholelithiasis Primary hypertension Dyslipidemia * CT scan shows, severe centrilobular emphysema. Nodular density in the right upper lobe measures up to 2.1 cm. Multiple smaller additional nodular densities are scattered throughout both lungs, most prominent in the left upper lobe, which may reflect infectious/inflammatory process * Knee CT scan shows,No CT findings to suggest osteomyelitis Plan/recommendation * Empiric antibiotic of azithromycin, Rocephin * IV fluid/methylprednisolone/breathing treatment * Oxygen through nasal cannula * Consulted infectious disease for possible fungal infection DIET: Regular DVT PROPHYLAXIS: Lovenox GI PROPHYLAXIS:: Protonix CODE STATUS: Goal of care discussed for more than 18 minutes, full code DISPOSITION: Telemetry Patient's status and plan discussed with the patient. Case discussed with Dr. George. Plan discussed with: Patient, Other (RN) My Orders My Orders Orders - DIAMANTE JIMÉNEZ Procedure Category Date Status Time Losartan Tablet PHA 11/22/24 In Process (Cozaar Tablet) 10:00 *Consult CONS 11/22/24 Transmitted / 08:53 Methylprednisolone PHA 11/23/24 In Process Sod Succ (Solu Medrol 10:00 Ceftriaxone 1gm/50ml PHA 11/23/24 In Process D5w (Rocephin) 09:00 Azithromycin 500mg/ PHA 11/23/24 In Process 250ml (Zithromax 50 10:00 Acetaminophen Tablet PHA 11/22/24 In Process (Tylenol Tablet) 12:00 * Infectious Serafin- CONS 11/22/24 Transmitted Kenneth Butler 12:53 Basic Metabolic Panel LAB 11/23/24 Verified 04:00 Complete Blood Count LAB 11/23/24 Verified 04:00 Date of Service: Nov 22, 2024 Billing Provider: DYLON GEORGE MD Common Visit Codes: [id number] INP/OBS CARE(HIGH) DIAMANTE JIMÉNEZ RESDIENT Nov 22, 2024 18:30 DYLON GEORGE MD Nov 29, 2024 21:22
[2024-11-23] VITALS (16 sets, daily range): BP systolic 111–158; BP diastolic 75–88; PULSE 62–96; RESP 16–20; TEMP 97.3–97.9; O2SAT 92–100
[2024-11-23 06:24] LABS: Basophils # (auto) 0 10 ^3/uL (0-0.2); Basophils % (auto) 0.1 % (0.0-2.0); Eosinophils # (auto) 0 10 ^3/uL (0-0.8); Hematocrit 42.7 % (41.0-53.0); Hemoglobin 14.4 g/dL (13.5-17.5); Lymphocytes # (auto) 0.6 10 ^3/uL (0.4-5.4); Mean Corpuscular Hemoglobin 30.6 pg (28.0-32.0); Mean Corpuscular Hgb Conc. 33.8 g/dL (32.0-36.0); Mean Corpuscular Volume 90.6 fL (80.0-100.0); Monocytes # (auto) 0.6 10 ^3/uL (0-1.3); Monocytes % (auto) 6.4 % (0.0-12.0); Neutrophils # (auto) 7.9 10 ^3/uL (1.6-8.6); Neutrophils % (auto) 86.5 % (37.0-80.0); Platelet Count (auto) 206 10^3/uL (140-450); Red Blood Cells 4.71 10^6/uL (4.5-5.90); Red Cell Distribution Width 14.7 % (11.8-14.3); White Blood Cell 9.2 10^3/uL (4.4-10.8)
[2024-11-23 06:25] LABS: Anion Gap 10 (5-15); Carbon Dioxide 25 mmol/L (20-31); Chloride 106 mmol/L (98-107); Potassium 4.4 mmol/L (3.5-5.1); Sodium 141 mmol/L (136-145)
[2024-11-23 06:27] LABS: Calcium 9.8 mg/dL (8.7-10.4)
[2024-11-23 06:32] LABS: BUN/Creatinine Ratio 18.3 (10.0-20.0); Blood Urea Nitrogen 17 mg/dL (9-23)
[2024-11-23 06:49] LABS: Glucose 138 mg/dL (74-106)
[2024-11-23] MEDS ORDERED: ACETAMINOPHEN 325 MG TAB PO PRN (07:15)
[2024-11-23] MEDS: AZITHROMYCIN 500MG/ 250ML 250 ML IV SCH (10:27)
[2024-11-23] MEDS: methylPREDNISolone SOD SUCC 40 MG/ML VL IV SCH (10:27)
[2024-11-23] MEDS: cefTRIAXone 1GM/50ML D5W 50 ML IV SCH (10:27)
--- NOTE | 2024-11-23 13:27 | DVHPNRES ---
Progress Note Date Seen: Nov 23, 2024 Resident Creating Document: NATALI GUZMAN RESIDENT Has the PT tested + for MRSA If YES, has PT been informed?: No Medical Necessity Reason Pt with a Central, PICC or Fol: No Subjective Review of Systems Patient seen and examined at bedside. Patient states that is feeling slightly better respiratory gonsales but he is still on 2 L of oxygen through nasal cannula. Yesterday, we ordered QuantiFERON gold test, HIV, Coccidioides antibodies, Aspergillus antibodies and we sent Aspergillus bronchopulmonary aspergillosis profile one to [facility]. We are still pending for all results. We also spoke with the nurse in charge to request biopsy final results and final cultures to [facility] to obtain final growth of the fungus. Patient already signed authorization for faxing documentation. Still waiting for the reports. For now, continue current management. ROS Constitutional: Denies weight loss, fever and chills. HEENT: Denies changes in vision and hearing. Respiratory: Denies shortness of breath and cough Cardiovascular: Denies chest discomfort or palpitations GI: Denies abdominal pain, nausea, vomiting and diarrhea. : Denies dysuria and urinary frequency. Musculoskeletal: Denies myalgias and joint pain Skin: Denies rash and pruritus. Neurological: Denies dizziness, headache, vision or hearing problems Objective vital signs Vital Sign Date Time Temp Pulse Resp B/P (MAP) Pulse Ox O2 Delivery O2 Flow Rate FiO2 11/23/24 11:55 81 16 98 11/23/24 11:45 Nasal Cannula 2.0 11/23/24 11:45 28 11/23/24 10:26 124/75 11/23/24 09:00 97.6 97.6 Total Intake and Output 11/22/24 11/22/24 11/23/24 15:00 23:00 07:00 Intake Total 1175 ml 1030 ml Balance 1175 ml 1030 ml medications Current Medications Medications Dose Ordered Sig/Zuleyka Route Start Time Stop Time Status Last Admin Dose Admin Acetylcysteine 200 mg Q6HR NEB 11/22/24 00:00 11/23/24 11:46 200 MG Levalbuterol HCl 0.625 mg Q6HR NEB 11/22/24 00:00 11/23/24 11:44 0.625 MG Ipratropium [place] 0.5 mg Q6HR NEB 11/22/24 00:00 11/23/24 11:44 0.5 MG Lactated Ringer's 1,000 ml @ 125 mls/hr Q8H IV 11/21/24 22:15 11/22/24 14:15 125 MLS/HR Pantoprazole Sodium 40 mg DAILY@0600 PO 11/22/24 06:00 11/23/24 06:16 40 MG Enoxaparin Sodium 40 mg DAILY SC 11/22/24 10:00 11/23/24 10:25 40 MG Ibuprofen 600 mg Q12HP PRN PO 11/21/24 23:30 Losartan Potassium 100 mg DAILY PO 11/22/24 10:00 11/23/24 10:26 100 MG Methylprednisolone Sodium Succinate 40 mg DAILY IV 11/23/24 10:00 11/23/24 10:27 40 MG Ceftriaxone Sodium 50 ml @ 100 mls/hr DAILY@09 IV 11/23/24 09:00 11/23/24 10:27 100 MLS/HR Azithromycin 250 ml @ 125 mls/hr DAILY IV 11/23/24 10:00 11/23/24 10:27 125 MLS/HR Acetaminophen 650 mg Q6HP PO 11/22/24 12:00 Hold Acetaminophen 650 mg Q6HP PRN PO 11/23/24 07:15 Examination Physical Examination General: Patient alert and oriented in person, place and time. Patient following commands. HEENT: Normocephalic, atraumatic, moist mucous membranes Respiratory/pulmonary: There is decreased breath sounds bilaterally with expiratory secretion sounds. No wheezes currently on 2 L of oxygen through nasal cannula Cardiovascular: Normal heart sounds S1 and S2 with no associated murmurs Abdomen: Abdomen nondistended, there is no pain to palpation in any of the abdominal quadrants, no palpable masses. Extremities: Left knee has a bandage with no secretions or erythema at this time. There is no peripheral edema present at the lower extremities. Skin: No rashes or pruritus, there is no sacral edema present at this time. Neurological: Intact cranial nerves with no focal neurologic deficits laboratory and microbiology Laboratory Tests 11/23/24 05:01 Test 11/23/24 05:01 Range/Units Serum Glucose 138 H 74-106 mg/dL Microbiology Date/Time Source Procedure Growth Status 11/21/24 14:56 Blood Blood Culture - Preliminary NO GROWTH AFTER 24 HOURS OF INCUBATION. 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 There is also a nodular densities in the right upper lobe measuring up to 2.1 cm. There are multiple smaller additional nodular densities throughout both lungs. -ordered sputum cultures -continue IV antibiotics ceftriaxone azithromycin -continue methylprednisolone 40 mg IV Qd -order QuantiFERON gold test -check HIV -order Coccidioides antibodies, Aspergillus antibody. Still pending reports -Documents were faxed and reviewed. unable to see cultures of the biopsy. Will try to call [facility] to microbiology area for more information -Will consult tombstone setter for possible bronchoscopy and BAL for cultures. Goals of care discussed with the patient at bedside for >35min, FULL CODE Plan discussed with Dr. Butler Plan discussed with: Patient My Orders My Orders Orders - NATALI GUZMAN RESIDENT Procedure Category Date Status Time Coccidioides Immitis LAB 11/22/24 In Process Antibody 18:58 Aspergillus Antibodies LAB 11/22/24 In Process 18:58 Immunoglobulin E LAB 11/23/24 In Process 09:25 NATALI GUZMAN RESIDENT Nov 23, 2024 13:27
--- NOTE | 2024-11-23 14:53 | DVHPNRES ---
Progress Note Date Seen: Nov 23, 2024 Resident Creating Document: DIAMANTE JIMÉNEZ GHAZALA Has the PT tested + for MRSA If YES, has PT been informed?: No Medical Necessity Reason Pt with a Central, PICC or Fol: No Subjective Review of Systems Patient seen and examined at the bedside. Patient is feeling better since admission but still complained of shortness of the breath Patient reports: No new complaints, Feels better Changes from previous H/P or p: Changes Objective vital signs Vital Sign Date Time Temp Pulse Resp B/P (MAP) Pulse Ox O2 Delivery O2 Flow Rate FiO2 11/23/24 11:55 81 16 98 11/23/24 11:45 Nasal Cannula 2.0 11/23/24 11:45 28 11/23/24 10:26 124/75 11/23/24 09:00 97.6 97.6 Total Intake and Output 11/22/24 11/22/24 11/23/24 15:00 23:00 07:00 Intake Total 1175 ml 1030 ml Balance 1175 ml 1030 ml medications Current Medications Medications Dose Ordered Sig/Zuleyka Route Start Time Stop Time Status Last Admin Dose Admin Acetylcysteine 200 mg Q6HR NEB 11/22/24 00:00 11/23/24 11:46 200 MG Levalbuterol HCl 0.625 mg Q6HR NEB 11/22/24 00:00 11/23/24 11:44 0.625 MG Ipratropium [place] 0.5 mg Q6HR NEB 11/22/24 00:00 11/23/24 11:44 0.5 MG Lactated Ringer's 1,000 ml @ 125 mls/hr Q8H IV 11/21/24 22:15 11/22/24 14:15 125 MLS/HR Pantoprazole Sodium 40 mg DAILY@0600 PO 11/22/24 06:00 11/23/24 06:16 40 MG Enoxaparin Sodium 40 mg DAILY SC 11/22/24 10:00 11/23/24 10:25 40 MG Ibuprofen 600 mg Q12HP PRN PO 11/21/24 23:30 Losartan Potassium 100 mg DAILY PO 11/22/24 10:00 11/23/24 10:26 100 MG Methylprednisolone Sodium Succinate 40 mg DAILY IV 11/23/24 10:00 11/23/24 10:27 40 MG Ceftriaxone Sodium 50 ml @ 100 mls/hr DAILY@09 IV 11/23/24 09:00 11/23/24 10:27 100 MLS/HR Azithromycin 250 ml @ 125 mls/hr DAILY IV 11/23/24 10:00 11/23/24 10:27 125 MLS/HR Acetaminophen 650 mg Q6HP PO 11/22/24 12:00 Hold Acetaminophen 650 mg Q6HP PRN PO 11/23/24 07:15 Examination General Appearance: Alert, Oriented X3, Cooperative, No acute distress HEENT: Atraumatic, PERRLA, EOMI, Mucous membrane moist/pink Respiratory: Bilateral rhonchi with decreased breathing sounds Cardiovascular: Regular rate, Normal S1, Normal S2, No murmurs, no chest wall tenderness Abdominal: Normal bowel sounds, Soft, No tenderness, No hepatospenomegaly, No masses Extremities: No clubbing, No cyanosis, No edema, Normal pulses, No tenderness/swelling Skin: No rashes, No breakdown, No significant lesion Neuro: Normal gait, Normal speech, Strength at 5/5 X4 ext, Normal tone, Sensation intact, Cranial nerves 3-12 NL, Reflexes 2+ Psych/Mental Status: Mental status NL, Mood NL laboratory and microbiology Laboratory Tests 11/23/24 05:01 Test 11/23/24 05:01 Range/Units Serum Glucose 138 H 74-106 mg/dL Microbiology Date/Time Source Procedure Growth Status 11/21/24 14:56 Blood Blood Culture - Preliminary NO GROWTH AFTER 24 HOURS OF INCUBATION. Resulted Labs and/or images reviewed: Labs reviewed by me, Image(s) reviewed by me Problem List/Assessment/Plan Problem List/Assessment/Plan Acute hypoxic respiratory failure, likely due to COPD exacerbation Acute COPD exacerbation, likely due to pneumonia Pneumonia, likely due to Gram-positive/Gram-negative bacteria/fungal Sepsis, likely due to pneumonia History of lung cancer , status post partial lobectomy Current smoker H/O right lung nodule Left knee pain S/p surgery for hardware removal 4 days ago done at [facility] by Dr. Carlos Eduardo kohler Ruled out osteomyelitis Cholelithiasis Primary hypertension Dyslipidemia * CT scan shows, severe centrilobular emphysema. Nodular density in the right upper lobe measures up to 2.1 cm. Multiple smaller additional nodular densities are scattered throughout both lungs, most prominent in the left upper lobe, which may reflect infectious/inflammatory process * Knee CT scan shows,No CT findings to suggest osteomyelitis Plan/recommendation * Empiric antibiotic of azithromycin, Rocephin * IV fluid/methylprednisolone/breathing treatment * Oxygen through nasal cannula * Consulted infectious disease for possible fungal infection, recommended bacteria coverage at the moment * Requested final result of previous biopsy from [facility] (performed 1 month back), pending response DIET: Regular DVT PROPHYLAXIS: Lovenox GI PROPHYLAXIS:: Protonix CODE STATUS: Goal of care discussed for more than 18 minutes, full code DISPOSITION: Telemetry Patient's status and plan discussed with the patient. Case discussed with Dr. Chapin. Plan discussed with: Patient, Other (RN) My Orders My Orders Orders - DIAMANTE JIMÉNEZ Procedure Category Date Status Time Quantiferon-Tb Gold LAB 11/22/24 In Process 18:58 Acetaminophen Tablet PHA 11/23/24 In Process (Tylenol Tablet) 07:15 Date of Service: Nov 23, 2024 Billing Provider: DYLON CHAPIN MD Common Visit Codes: [id number] INP/OBS CARE(HIGH) DIAMANTE JIMÉNEZ RESDIENT Nov 23, 2024 14:53 DYLON CHAPIN MD Nov 29, 2024 21:32
[2024-11-24] VITALS (17 sets, daily range): BP systolic 128–147; BP diastolic 79–92; PULSE 68–98; RESP 15–22; TEMP 97.4–98.2; O2SAT 89–98
[2024-11-24 07:58] LABS: Basophils # (auto) 0 10 ^3/uL (0-0.2); Basophils % (auto) 0.1 % (0.0-2.0); Eosinophils # (auto) 0 10 ^3/uL (0-0.8); Hemoglobin 14.8 g/dL (13.5-17.5); Lymphocytes # (auto) 0.9 10 ^3/uL (0.4-5.4); Lymphocytes % (auto) 8.7 % (10.0-50.0); Mean Corpuscular Hemoglobin 30.6 pg (28.0-32.0); Mean Corpuscular Hgb Conc. 33.5 g/dL (32.0-36.0); Mean Corpuscular Volume 91.3 fL (80.0-100.0); Monocytes # (auto) 0.8 10 ^3/uL (0-1.3); Monocytes % (auto) 7.8 % (0.0-12.0); Neutrophils # (auto) 8.4 10 ^3/uL (1.6-8.6); Neutrophils % (auto) 83.4 % (37.0-80.0); Platelet Count (auto) 223 10^3/uL (140-450); Red Blood Cells 4.82 10^6/uL (4.5-5.90); Red Cell Distribution Width 14.4 % (11.8-14.3); White Blood Cell 10.1 10^3/uL (4.4-10.8)
[2024-11-24 08:19] LABS: Chloride 106 mmol/L (98-107)
[2024-11-24 08:21] LABS: Calcium 9.8 mg/dL (8.7-10.4)
[2024-11-24 08:26] LABS: BUN/Creatinine Ratio 23.9 (10.0-20.0); Blood Urea Nitrogen 21 mg/dL (9-23)
[2024-11-24 08:28] LABS: Glucose 121 mg/dL (74-106)
[2024-11-24 08:43] LABS: Potassium 3.9 mmol/L (3.5-5.1); Sodium 141 mmol/L (136-145)
[2024-11-24 08:44] LABS: Anion Gap 10 (5-15); Carbon Dioxide 25 mmol/L (20-31)
--- NOTE | 2024-11-24 11:28 | DVHPNRES ---
Progress Note Date Seen: Nov 24, 2024 Resident Creating Document: NATALI GUZMAN RESIDENT Has the PT tested + for MRSA If YES, has PT been informed?: No Medical Necessity Reason Pt with a Central, PICC or Fol: No Subjective Review of Systems Patient seen and examined at bedside. Patient was currently on room air tolerating fine without respiratory distress. The patient states that he is feeling well overall and has no major complaints. HIV test came back negative. Aspergillus antibodies, Coccidioides antibodies, QuantiFERON gold are all still pending. We called this morning to [facility] and they reported that there was no cultures done at that time. We will recommend to get a bronchoscopy with BAL and sent to cultures. Once that is done, patient should be fine to be discharged and follow-up with Infectious Disease as an outpatient. Meanwhile continue current medical management. ROS Constitutional: Denies weight loss, fever and chills. HEENT: Denies changes in vision and hearing. Respiratory: Denies shortness of breath and cough Cardiovascular: Denies chest discomfort or palpitations GI: Denies abdominal pain, nausea, vomiting and diarrhea. : Denies dysuria and urinary frequency. Musculoskeletal: Denies myalgias and joint pain Skin: Denies rash and pruritus. Neurological: Denies dizziness, headache, vision or hearing problems Objective vital signs Vital Sign Date Time Temp Pulse Resp B/P (MAP) Pulse Ox O2 Delivery O2 Flow Rate FiO2 11/24/24 10:37 145/85 11/24/24 10:00 93 Room Air 0.0 11/24/24 10:00 21 11/24/24 09:00 97.4 80 18 97.4 Total Intake and Output 11/23/24 11/23/24 11/24/24 15:00 23:00 07:00 Intake Total 1100 ml 940 ml Balance 1100 ml 940 ml medications Current Medications Medications Dose Ordered Sig/Zuleyka Route Start Time Stop Time Status Last Admin Dose Admin Acetylcysteine 200 mg Q6HR NEB 11/22/24 00:00 11/24/24 05:33 200 MG Levalbuterol HCl 0.625 mg Q6HR NEB 11/22/24 00:00 11/24/24 05:33 0.625 MG Ipratropium [place] 0.5 mg Q6HR NEB 11/22/24 00:00 11/24/24 05:33 0.5 MG Lactated Ringer's 1,000 ml @ 125 mls/hr Q8H IV 11/21/24 22:15 11/23/24 14:15 125 MLS/HR Pantoprazole Sodium 40 mg DAILY@0600 PO 11/22/24 06:00 11/24/24 05:04 40 MG Enoxaparin Sodium 40 mg DAILY SC 11/22/24 10:00 11/24/24 10:36 40 MG Ibuprofen 600 mg Q12HP PRN PO 11/21/24 23:30 Losartan Potassium 100 mg DAILY PO 11/22/24 10:00 11/24/24 10:37 100 MG Methylprednisolone Sodium Succinate 40 mg DAILY IV 11/23/24 10:00 11/24/24 10:40 40 MG Ceftriaxone Sodium 50 ml @ 100 mls/hr DAILY@09 IV 11/23/24 09:00 11/24/24 10:42 100 MLS/HR Azithromycin 250 ml @ 125 mls/hr DAILY IV 11/23/24 10:00 11/23/24 10:27 125 MLS/HR Acetaminophen 650 mg Q6HP PO 11/22/24 12:00 Hold Acetaminophen 650 mg Q6HP PRN PO 11/23/24 07:15 Examination Physical Examination General: Patient alert and oriented in person, place and time. Patient following commands. HEENT: Normocephalic, atraumatic, moist mucous membranes Respiratory/pulmonary: There is decreased breath sounds bilaterally with expiratory secretion sounds. No wheezes currently on room air. Cardiovascular: Normal heart sounds S1 and S2 with no associated murmurs Abdomen: Abdomen nondistended, there is no pain to palpation in any of the abdominal quadrants, no palpable masses. Extremities: Left knee has a bandage with no secretions or erythema at this time. There is no peripheral edema present at the lower extremities. Skin: No rashes or pruritus, there is no sacral edema present at this time. Neurological: Intact cranial nerves with no focal neurologic deficits laboratory and microbiology Laboratory Tests 11/24/24 06:58 Test 11/24/24 06:58 Range/Units Serum Glucose 121 H 74-106 mg/dL Microbiology Date/Time Source Procedure Growth Status 11/21/24 14:56 Blood Blood Culture - Preliminary NO GROWTH AFTER 48 HOURS OF INCUBATION. 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 There is also a nodular densities in the right upper lobe measuring up to 2.1 cm. There are multiple smaller additional nodular densities throughout both lungs. -ordered sputum cultures -continue IV antibiotics ceftriaxone azithromycin -continue methylprednisolone 40 mg IV Qd -order QuantiFERON gold test -check HIV -order Coccidioides antibodies, Aspergillus antibody. Still pending reports -Documents were faxed and reviewed. unable to see cultures of the biopsy. -Called [facility] and there were no cultures done at that time -Pending pulmonology consult for bronchoscopy, BAL for cultures. -Continue current management per primary team. Goals of care discussed with the patient at bedside for >35min, FULL CODE Plan discussed with Dr. Butler Plan discussed with: Patient My Orders My Orders Orders - NATALI GUZMAN Procedure Category Date Status Time *Consult CONS 11/24/24 Transmitted / 08:58 NATALI GUZMAN RESIDENT Nov 24, 2024 11:28
--- NOTE | 2024-11-24 15:23 | DVHPNRES ---
Progress Note Date Seen: Nov 24, 2024 Resident Creating Document: DIAMANTE JIMÉNEZ GHAZALA Has the PT tested + for MRSA If YES, has PT been informed?: No Medical Necessity Reason Pt with a Central, PICC or Fol: No Subjective Review of Systems Patient seen and examined at bedside. Patient is feeling better since admission. But still complaining of shortness of SOB Patient reports: No new complaints, Feels better Changes from previous H/P or p: Changes Objective vital signs Vital Sign Date Time Temp Pulse Resp B/P (MAP) Pulse Ox O2 Delivery O2 Flow Rate FiO2 11/24/24 13:00 97.6 81 15 128/79 (95) 93 97.6 11/24/24 11:56 Room Air 0.0 11/24/24 11:56 21 Total Intake and Output 11/23/24 11/23/24 11/24/24 14:59 22:59 06:59 Intake Total 1100 ml 940 ml Balance 1100 ml 940 ml medications Current Medications Medications Dose Ordered Sig/Zuleyka Route Start Time Stop Time Status Last Admin Dose Admin Acetylcysteine 200 mg Q6HR NEB 11/22/24 00:00 11/24/24 11:57 200 MG Levalbuterol HCl 0.625 mg Q6HR NEB 11/22/24 00:00 11/24/24 11:56 0.625 MG Ipratropium [place] 0.5 mg Q6HR NEB 11/22/24 00:00 11/24/24 11:56 0.5 MG Lactated Ringer's 1,000 ml @ 125 mls/hr Q8H IV 11/21/24 22:15 11/23/24 14:15 125 MLS/HR Pantoprazole Sodium 40 mg DAILY@0600 PO 11/22/24 06:00 11/24/24 05:04 40 MG Enoxaparin Sodium 40 mg DAILY SC 11/22/24 10:00 11/24/24 10:36 40 MG Ibuprofen 600 mg Q12HP PRN PO 11/21/24 23:30 Losartan Potassium 100 mg DAILY PO 11/22/24 10:00 11/24/24 10:37 100 MG Methylprednisolone Sodium Succinate 40 mg DAILY IV 11/23/24 10:00 11/24/24 10:40 40 MG Ceftriaxone Sodium 50 ml @ 100 mls/hr DAILY@09 IV 11/23/24 09:00 11/24/24 10:42 100 MLS/HR Azithromycin 250 ml @ 125 mls/hr DAILY IV 11/23/24 10:00 11/24/24 12:02 125 MLS/HR Acetaminophen 650 mg Q6HP PO 11/22/24 12:00 Hold Acetaminophen 650 mg Q6HP PRN PO 11/23/24 07:15 Examination General Appearance: Alert, Oriented X3, Cooperative, No acute distress HEENT: Atraumatic, PERRLA, EOMI, Mucous membrane moist/pink Respiratory: Bilateral mild crackles Cardiovascular: Regular rate, Normal S1, Normal S2, No murmurs, no chest wall tenderness Abdominal: Normal bowel sounds, Soft, No tenderness, No hepatospenomegaly, No masses Extremities: No clubbing, No cyanosis, No edema, Normal pulses, No tenderness/swelling Skin: No rashes, No breakdown, No significant lesion Neuro: Normal gait, Normal speech, Strength at 5/5 X4 ext, Normal tone, Sensation intact, Cranial nerves 3-12 NL, Reflexes 2+ Psych/Mental Status: Mental status NL, Mood NL laboratory and microbiology Laboratory Tests 11/24/24 06:58 Test 11/24/24 06:58 Range/Units Serum Glucose 121 H 74-106 mg/dL Microbiology Date/Time Source Procedure Growth Status 11/23/24 06:15 Knee Left Gram Stain - Final Resulted 11/23/24 06:15 Knee Left Wound Culture - Preliminary Resulted 11/23/24 06:15 Sputum Gram Stain - Final Resulted 11/23/24 06:15 Sputum Respiratory Culture - Preliminary Resulted 11/21/24 14:56 Blood Blood Culture - Preliminary NO GROWTH AFTER 72 HOURS OF INCUBATION. Resulted Labs and/or images reviewed: Labs reviewed by me, Image(s) reviewed by me Problem List/Assessment/Plan Problem List/Assessment/Plan Acute hypoxic respiratory failure, likely due to COPD exacerbation Acute COPD exacerbation, likely due to pneumonia Pneumonia, likely due to Gram-positive/Gram-negative bacteria/fungal Sepsis, likely due to pneumonia History of lung cancer , status post partial lobectomy Current smoker H/O right lung nodule Left knee pain S/p surgery for hardware removal 4 days ago done at [facility] by Dr. Carlos Eduardo kohler Ruled out osteomyelitis Cholelithiasis Primary hypertension Dyslipidemia * CT scan shows, severe centrilobular emphysema. Nodular density in the right upper lobe measures up to 2.1 cm. Multiple smaller additional nodular densities are scattered throughout both lungs, most prominent in the left upper lobe, which may reflect infectious/inflammatory process * Knee CT scan shows,No CT findings to suggest osteomyelitis Plan/recommendation * Empiric antibiotic of azithromycin, Rocephin * IV fluid/methylprednisolone/breathing treatment * Oxygen through nasal cannula * Consulted infectious disease for possible fungal infection, recommended bacteria coverage at the moment * Requested final result of previous biopsy from [facility] (performed 1 month back), pending response * Consulted pulmonology, for the bronchoscopy/bronchoalveolar lavage for possible fungal pneumonia DIET: Regular DVT PROPHYLAXIS: Lovenox GI PROPHYLAXIS:: Protonix CODE STATUS: Goal of care discussed for more than 18 minutes, full code DISPOSITION: Telemetry Patient's status and plan discussed with the patient. Case discussed with Dr. Chapin. Plan discussed with: Patient, Other (RN) My Orders My Orders Orders - DIAMANTE JIMÉNEZ RESDIKAROLINE Procedure Category Date Status Time Insert Midline ORDERS 11/23/24 Transmitted 16:43 Date of Service: Nov 24, 2024 Billing Provider: DYLON CHAPIN MD Common Visit Codes: [id number] INP/OBS CARE(HIGH) DIAMANTE JIMÉNEZ RESDIENT Nov 24, 2024 15:23 DYLON CHAPIN MD Nov 29, 2024 21:43
--- NOTE | 2024-11-24 18:34 | DVHINCON2 ---
Date of service: Nov 22, [address] lancaster Reason for Consultation pulm nodules and copd History of Present Illness HPI pt is a 74 yo male, h/o lung cancer and copd, s/p left lung resection, my clinic pt. Presented with shortness of breath and cough productive of yellow mucus. admission CT chest reviewed 1. No pulmonary embolism. 2. Severe centrilobular emphysema. 3. Nodular density in the right upper lobe measures up to 2.1 cm. Multiple smaller additional nodular densities are scattered throughout both lungs, most prominent in the left upper lobe, which may reflect infectious/inflammatory process. Recommend follow-up noncontrast chest CT in 2-4 weeks to evaluate for stability. Pt recently underwent lung bx at [facility] and thought to have a fungal lung disease Home Meds Reported Medications Atorvastatin Calcium (ATORVASTATIN CALCIUM) 40 Mg Tab, 1 TAB PO DAILY, #30 TAB 5 Refills 11/22/24 Losartan Potassium (Losartan Potassium) 100 Mg Tab, 1 TAB PO DAILY, #30 TAB 5 Refills 11/22/24 Dexlansoprazole (Dexilant) 60 Mg Cap, 60 MG PO DAILY, CAP 11/22/24 Pufdyksjksr-Cvffizjqedpr-Pyztw (Trelegy Ellipta 100-62.5-25 Mcg/INH) 1 Aer Aer, 1 AER IN, AER 11/22/24 Past Medical History Cardiac: No pertinent Hx Pulmonary: COPD, Lung cancer Central Nervous System: No pertinent Hx GI: No pertinent Hx Hemotology/Oncology: No pertinent Hx Hepatobiliary: No pertinent Hx Psychiatric: No pertinent Hx Musculoskeletal: No pertinent Hx Rheumotologic: No pertinent Hx Infectious Disease: No peritnent Hx ENT: No pertinent Hx Renal/: No pertinent Hx Endocrine: No pertinent Hx Dermatology: No pertinent Hx Past Surgical History: No pertinent Hx, Other Family History: No pertinent Hx Patient Family History: Diabetes mellitus G8 MOTHER FH: lymphoma, malignant G8 FATHER Review of Systems Constitutional: Malaise Ears, Nose, & Throat: No symptom reported Eyes: No symptom reported Pulmonary/Respiratory: Dyspnea, Cough Cardiovascular: No symptom reported Gastrointestinal: No symptom reported Genitourinary: No symptom reported Musculoskeletal: No symptom reported Skin: No symptom reported Psychiatric: No symptom reported Endocrine: No symptom reported Hemotologic/Lymphatic: No symptom reported H&P Exam Vital Signs Vital Signs Date Time Temp Pulse Resp B/P (MAP) Pulse Ox O2 Delivery O2 Flow Rate FiO2 11/24/24 17:00 97.9 96 18 144/84 (104) 96 97.9 11/24/24 11:56 Room Air 0.0 11/24/24 11:56 21 General Appeara: Well developed, Well nourished, Normal Appearance Head Exam: Normal inspection Neck Exam: Normal inspection, Non-tender, Normal alignment Eye Exam: bilateral eye Normal inspection, bilateral eye PERRL Ear Exam: bilateral ear Auricle normal, bilateral ear Canal normal, bilateral ear TM normal Nasal Exam: Normal inspection Mouth: Normal Inspection Pulmonary/Respiratory: Normal inspection, Normal breath sounds, Chest non- tender Cardiovascular/Chest: Normal inspection Peripheral Pulses: 4+ carotid (R), 4+ carotid (L) Abdominal Exam: Normal bowel sounds Labs/Xrays Labs Test 11/24/24 06:58 11/23/24 05:01 11/22/24 19:48 11/22/24 09:40 Range/Units White Blood Count 10.1 4.4-10.8 10^3/uL Red Blood Count 4.82 4.5-5.90 10^6/uL Hemoglobin 14.8 13.5-17.5 g/dL Hematocrit 44.0 41.0-53.0 % Mean Corpuscular Volume 91.3 80.0-100.0 fL Mean Corpuscular Hemoglobin 30.6 28.0-32.0 pg Mean Corpuscular Hemoglobin Concent 33.5 32.0-36.0 g/dL Red Cell Distribution Width 14.4 H 11.8-14.3 % Platelet Count 223 140-450 10^3/uL Mean Platelet Volume 7.8 6.9-10.8 fL Neutrophils (%) (Auto) 83.4 H 37.0-80.0 % Lymphocytes (%) (Auto) 8.7 L 10.0-50.0 % Monocytes (%) (Auto) 7.8 0.0-12.0 % Eosinophils (%) (Auto) 0.0 0.0-7.0 % Basophils (%) (Auto) 0.1 0.0-2.0 % Neutrophils # (Auto) 8.4 1.6-8.6 10 ^3/uL Lymphocytes # (Auto) 0.9 0.4-5.4 10 ^3/uL Monocytes # (Auto) 0.8 0-1.3 10 ^3/uL Eosinophils # (Auto) 0 0-0.8 10 ^3/uL Basophils # (Auto) 0 0-0.2 10 ^3/uL Nucleated Red Blood Cells 0.0 % Sodium Level 141 136-145 mmol/L Potassium Level 3.9 3.5-5.1 mmol/L Chloride Level 106 98-107 mmol/L Carbon Dioxide Level 25 20-31 mmol/L Anion Gap 10 5-15 Blood Urea Nitrogen 21 9-23 mg/dL Creatinine 0.88 0.700-1.30 mg/dL Glomerular Filtration Rate Calc 90 >90 mL/min BUN/Creatinine Ratio 23.9 H 10.0-20.0 Serum Glucose 121 H 74-106 mg/dL Calcium Level 9.8 8.7-10.4 mg/dL Miscellaneous Referred Test (Refrg) Sent to [facility] Total Bilirubin 2.1 H 0.2-1.0 mg/dL Aspartate Amino Transferase (AST) 11 <34 U/L Alanine Aminotransferase (ALT) < 9 7-40 U/L Alkaline Phosphatase 134 H 46-116 U/L Total Protein 6.1 5.7-8.2 g/dL Albumin 3.9 3.2-4.8 g/dL HIV (1&2) Antibody Negative Negative Test 11/22/24 01:25 11/21/24 16:57 11/21/24 15:26 11/21/24 11:35 Range/Units Influenza Type A Antigen Negative Negative Influenza Type B Antigen Negative Negative SARS-CoV-2 Antigen (Rapid) Negative NEGATIVE Lactic Acid Level 1.9 0.4-2.0 mmol/L Urine Color Light-yellow Yellow Urine Clarity Clear Clear Urine pH 7.0 5.0-9.0 Urine Specific [place] > 1.050 H 1.001-1.035 Urine Protein Negative Negative Urine Ketones Negative Negative Urine Blood Negative Negative /uL Urine Nitrite Negative Negative Urine Bilirubin Negative Negative Urine Urobilinogen Normal Negative mg/dL Urine Leukocyte Esterase Negative Negative /uL Urine RBC 1 0 - 3 /hpf Urine Microscopic WBC 1 0-3 /HPF Urine Squamous Epithelial Cells Few <5 /hpf Urine Bacteria None seen None Seen /hpf Urine Glucose Normal Normal mg/dL Troponin I High Sensitivity 7 </=54 ng/L Microbiology Date/Time Source Procedure Growth Status 11/23/24 06:15 Knee Left Gram Stain - Final Resulted 11/23/24 06:15 Knee Left Wound Culture - Preliminary Resulted 11/23/24 06:15 Sputum Gram Stain - Final Resulted 11/23/24 06:15 Sputum Respiratory Culture - Preliminary Resulted 11/21/24 14:56 Blood Blood Culture - Preliminary NO GROWTH AFTER 72 HOURS OF INCUBATION. Resulted Assessment/Plan Plan copd pulm nodules h/o lung cancer pneumonia plan agree with abx bronchodilators mucolytics\ IS send sputum cx ID consult will follow up consider bronchoscopy Plan discussed with: Patient OLIVER RAMÍREZ MD Nov 24, 2024 18:34
--- NOTE | 2024-11-24 18:35 | DVHPN2 ---
Progress Note - Dictate Date Seen: Nov 23, 2024 Has the PT tested + for MRSA If YES, has PT been informed?: No Medical Necessity Reason Pt with a Central, PICC or Fol: No vital signs Vital Sign Date Time Temp Pulse Resp B/P (MAP) Pulse Ox O2 Delivery O2 Flow Rate FiO2 11/24/24 17:00 97.9 96 18 144/84 (104) 96 97.9 11/24/24 11:56 Room Air 0.0 11/24/24 11:56 21 Total Intake and Output 11/23/24 11/23/24 11/24/24 14:59 22:59 06:59 Intake Total 1100 ml 940 ml Balance 1100 ml 940 ml medications Current Medications Medications Dose Ordered Sig/Zuleyka Route Start Time Stop Time Status Last Admin Dose Admin Acetylcysteine 200 mg Q6HR NEB 11/22/24 00:00 11/24/24 11:57 200 MG Levalbuterol HCl 0.625 mg Q6HR NEB 11/22/24 00:00 11/24/24 11:56 0.625 MG Ipratropium [place] 0.5 mg Q6HR NEB 11/22/24 00:00 11/24/24 11:56 0.5 MG Lactated Ringer's 1,000 ml @ 125 mls/hr Q8H IV 11/21/24 22:15 11/24/24 16:26 125 MLS/HR Pantoprazole Sodium 40 mg DAILY@0600 PO 11/22/24 06:00 11/24/24 05:04 40 MG Enoxaparin Sodium 40 mg DAILY SC 11/22/24 10:00 11/24/24 10:36 40 MG Ibuprofen 600 mg Q12HP PRN PO 11/21/24 23:30 Losartan Potassium 100 mg DAILY PO 11/22/24 10:00 11/24/24 10:37 100 MG Methylprednisolone Sodium Succinate 40 mg DAILY IV 11/23/24 10:00 11/24/24 10:40 40 MG Ceftriaxone Sodium 50 ml @ 100 mls/hr DAILY@09 IV 11/23/24 09:00 11/24/24 10:42 100 MLS/HR Azithromycin 250 ml @ 125 mls/hr DAILY IV 11/23/24 10:00 11/24/24 12:02 125 MLS/HR Acetaminophen 650 mg Q6HP PO 11/22/24 12:00 Hold Acetaminophen 650 mg Q6HP PRN PO 11/23/24 07:15 laboratory and microbiology Laboratory Tests 11/24/24 06:58 Test 11/24/24 06:58 Range/Units Serum Glucose 121 H 74-106 mg/dL Assessment/Plan copd pulm nodule lung cancer s/p left lung resection ?pneumonia fungal Plan discussed with: Patient OLIVER RAMÍREZ MD Nov 24, 2024 18:35
--- NOTE | 2024-11-24 18:36 | DVHPN2 ---
Progress Note - Dictate Date Seen: Nov 24, 2024 Has the PT tested + for MRSA If YES, has PT been informed?: No Medical Necessity Reason Pt with a Central, PICC or Fol: No vital signs Vital Sign Date Time Temp Pulse Resp B/P (MAP) Pulse Ox O2 Delivery O2 Flow Rate FiO2 11/24/24 17:00 97.9 96 18 144/84 (104) 96 97.9 11/24/24 11:56 Room Air 0.0 11/24/24 11:56 21 Total Intake and Output 11/23/24 11/23/24 11/24/24 14:59 22:59 06:59 Intake Total 1100 ml 940 ml Balance 1100 ml 940 ml medications Current Medications Medications Dose Ordered Sig/Zuleyka Route Start Time Stop Time Status Last Admin Dose Admin Acetylcysteine 200 mg Q6HR NEB 11/22/24 00:00 11/24/24 11:57 200 MG Levalbuterol HCl 0.625 mg Q6HR NEB 11/22/24 00:00 11/24/24 11:56 0.625 MG Ipratropium [place] 0.5 mg Q6HR NEB 11/22/24 00:00 11/24/24 11:56 0.5 MG Lactated Ringer's 1,000 ml @ 125 mls/hr Q8H IV 11/21/24 22:15 11/24/24 16:26 125 MLS/HR Pantoprazole Sodium 40 mg DAILY@0600 PO 11/22/24 06:00 11/24/24 05:04 40 MG Enoxaparin Sodium 40 mg DAILY SC 11/22/24 10:00 11/24/24 10:36 40 MG Ibuprofen 600 mg Q12HP PRN PO 11/21/24 23:30 Losartan Potassium 100 mg DAILY PO 11/22/24 10:00 11/24/24 10:37 100 MG Methylprednisolone Sodium Succinate 40 mg DAILY IV 11/23/24 10:00 11/24/24 10:40 40 MG Ceftriaxone Sodium 50 ml @ 100 mls/hr DAILY@09 IV 11/23/24 09:00 11/24/24 10:42 100 MLS/HR Azithromycin 250 ml @ 125 mls/hr DAILY IV 11/23/24 10:00 11/24/24 12:02 125 MLS/HR Acetaminophen 650 mg Q6HP PO 11/22/24 12:00 Hold Acetaminophen 650 mg Q6HP PRN PO 11/23/24 07:15 laboratory and microbiology Laboratory Tests 11/24/24 06:58 Test 11/24/24 06:58 Range/Units Serum Glucose 121 H 74-106 mg/dL Assessment/Plan copd pulm nodule lung cancer s/p left lung resection ?pneumonia fungal abx bronchodilators bronch on friday Plan discussed with: Patient OLIVER RAMÍREZ MD Nov 24, 2024 18:36
[2024-11-25] VITALS (17 sets, daily range): BP systolic 134–153; BP diastolic 79–101; PULSE 63–100; RESP 17–19; TEMP 97–98.1; O2SAT 91–100
[2024-11-25 06:47] LABS: Anion Gap 10 (5-15); Carbon Dioxide 26 mmol/L (20-31); Chloride 106 mmol/L (98-107); Potassium 3.9 mmol/L (3.5-5.1); Sodium 142 mmol/L (136-145)
[2024-11-25 06:48] LABS: Calcium 9.7 mg/dL (8.7-10.4)
[2024-11-25 06:53] LABS: BUN/Creatinine Ratio 22.1 (10.0-20.0); Basophils # (auto) 0 10 ^3/uL (0-0.2); Basophils % (auto) 0.2 % (0.0-2.0); Blood Urea Nitrogen 21 mg/dL (9-23); Eosinophils # (auto) 0 10 ^3/uL (0-0.8); Eosinophils % (auto) 0.1 % (0.0-7.0); Glucose 114 mg/dL (74-106); Hematocrit 43.2 % (41.0-53.0); Hemoglobin 14.9 g/dL (13.5-17.5); Lymphocytes % (auto) 11.9 % (10.0-50.0); Mean Corpuscular Hemoglobin 31.2 pg (28.0-32.0); Mean Corpuscular Hgb Conc. 34.4 g/dL (32.0-36.0); Mean Corpuscular Volume 90.6 fL (80.0-100.0); Monocytes # (auto) 0.7 10 ^3/uL (0-1.3); Monocytes % (auto) 8.4 % (0.0-12.0); Neutrophils % (auto) 79.4 % (37.0-80.0); Platelet Count (auto) 232 10^3/uL (140-450); Red Blood Cells 4.76 10^6/uL (4.5-5.90); Red Cell Distribution Width 14.4 % (11.8-14.3); White Blood Cell 8.8 10^3/uL (4.4-10.8)
[2024-11-25] MEDS: amLODIPine BESYLATE 5 MG TAB PO ONE (10:16)
--- NOTE | 2024-11-25 11:40 | DVHPNRES ---
Progress Note Date Seen: Nov 25, 2024 Resident Creating Document: NATALI GUZMAN RESIDENT Has the PT tested + for MRSA If YES, has PT been informed?: No Medical Necessity Reason Pt with a Central, PICC or Fol: No Subjective Review of Systems Patient seen and examined at bedside. Patient states that he is feeling well overall, chest tightness has improved significantly and now he can take deep breaths. Patient had no fever or chills and has no additional complaints at this time. Coccidioides, Aspergillus and QuantiFERON gold test are all still pending. Preliminary respiratory cultures are showing normal oropharyngeal benjamin including yeast. Knee wound culture is showing no growth at this time. Patient will be scheduled for bronchoscopy tomorrow, after that patient might be discharged and follow-up with Infectious Disease as an outpatient to follow up on results and treatment. ROS Constitutional: Denies weight loss, fever and chills. HEENT: Denies changes in vision and hearing. Respiratory: Denies shortness of breath and cough Cardiovascular: Denies chest discomfort or palpitations GI: Denies abdominal pain, nausea, vomiting and diarrhea. : Denies dysuria and urinary frequency. Musculoskeletal: Denies myalgias and joint pain Skin: Denies rash and pruritus. Neurological: Denies dizziness, headache, vision or hearing problems Objective vital signs Vital Sign Date Time Temp Pulse Resp B/P (MAP) Pulse Ox O2 Delivery O2 Flow Rate FiO2 11/25/24 10:16 164/95 11/25/24 09:10 97.0 75 17 93 97.0 11/25/24 07:13 Room Air* 0 21 Total Intake and Output 11/24/24 11/24/24 11/25/24 15:00 23:00 07:00 Intake Total 170 ml 1612 ml 750 ml Balance 170 ml 1612 ml 750 ml medications Current Medications Medications Dose Ordered Sig/Zuleyka Route Start Time Stop Time Status Last Admin Dose Admin Acetylcysteine 200 mg Q6HR NEB 11/22/24 00:00 11/25/24 07:13 200 MG Levalbuterol HCl 0.625 mg Q6HR NEB 11/22/24 00:00 11/25/24 07:13 0.625 MG Ipratropium [place] 0.5 mg Q6HR NEB 11/22/24 00:00 11/25/24 07:13 0.5 MG Lactated Ringer's 1,000 ml @ 125 mls/hr Q8H IV 11/21/24 22:15 11/24/24 16:26 125 MLS/HR Pantoprazole Sodium 40 mg DAILY@0600 PO 11/22/24 06:00 11/25/24 05:13 40 MG Enoxaparin Sodium 40 mg DAILY SC 11/22/24 10:00 11/25/24 09:16 40 MG Ibuprofen 600 mg Q12HP PRN PO 11/21/24 23:30 Losartan Potassium 100 mg DAILY PO 11/22/24 10:00 11/25/24 09:15 100 MG Methylprednisolone Sodium Succinate 40 mg DAILY IV 11/23/24 10:00 11/25/24 09:15 40 MG Ceftriaxone Sodium 50 ml @ 100 mls/hr DAILY@09 IV 11/23/24 09:00 11/25/24 09:14 100 MLS/HR Azithromycin 250 ml @ 125 mls/hr DAILY IV 11/23/24 10:00 11/25/24 10:15 125 MLS/HR Acetaminophen 650 mg Q6HP PO 11/22/24 12:00 Hold Acetaminophen 650 mg Q6HP PRN PO 11/23/24 07:15 Amlodipine Besylate 5 mg DAILY PO 11/26/24 10:00 Examination Physical Examination General: Patient alert and oriented in person, place and time. Patient following commands. HEENT: Normocephalic, atraumatic, moist mucous membranes Respiratory/pulmonary: There is decreased breath sounds bilaterally with expiratory secretion sounds. No wheezes currently on room air. Cardiovascular: Normal heart sounds S1 and S2 with no associated murmurs Abdomen: Abdomen nondistended, there is no pain to palpation in any of the abdominal quadrants, no palpable masses. Extremities: Left knee has a bandage with no secretions or erythema at this time. There is no peripheral edema present at the lower extremities. Skin: No rashes or pruritus, there is no sacral edema present at this time. Neurological: Intact cranial nerves with no focal neurologic deficits laboratory and microbiology Laboratory Tests 11/25/24 06:20 Test 11/25/24 06:20 Range/Units Serum Glucose 114 H 74-106 mg/dL Microbiology Date/Time Source Procedure Growth Status 11/23/24 06:15 Knee Left Gram Stain - Final Resulted 11/23/24 06:15 Knee Left Wound Culture - Preliminary Resulted 11/23/24 06:15 Sputum Gram Stain - Final Resulted 11/23/24 06:15 Sputum Respiratory Culture - Preliminary Resulted 11/21/24 14:56 Blood Blood Culture - Preliminary NO GROWTH AFTER 72 HOURS OF INCUBATION. 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 There is also a nodular densities in the right upper lobe measuring up to 2.1 cm. There are multiple smaller additional nodular densities throughout both lungs. -ordered sputum cultures -continue IV antibiotics ceftriaxone azithromycin -continue methylprednisolone 40 mg IV Qd -order QuantiFERON gold test -check HIV -order Coccidioides antibodies, Aspergillus antibody. Still pending reports -Documents were faxed and reviewed. unable to see cultures of the biopsy. -Called [facility] and there were no cultures done at that time -bronchoscopy was scheduled for tomorrow -Continue current management per primary team. Goals of care discussed with the patient at bedside for >35min, FULL CODE Plan discussed with Dr. Butler Plan discussed with: Patient NATALI GUZMAN RESIDENT Nov 25, 2024 11:40
--- NOTE | 2024-11-25 13:15 | DVH ---
CHEST RADIOGRAPH Indication: pre-op/pain Technique: Single frontal view of the chest was obtained Comparison: None FINDINGS: Lines and Tubes: None Lungs: No focal consolidation. Pleura: No effusion. No pneumothorax. Cardiomediastinal contours: Unremarkable Bones: No acute osseous abnormality. IMPRESSION: No acute cardiopulmonary disease.
--- NOTE | 2024-11-25 13:54 | DVHPNRES ---
Progress Note Date Seen: Nov 25, 2024 Resident Creating Document: DIAMANTE JIMÉNEZ GHAZALA Has the PT tested + for MRSA If YES, has PT been informed?: No Medical Necessity Reason Pt with a Central, PICC or Fol: No Subjective Review of Systems Patient seen and examined at the bedside. Patient is feeling better since admission but still complained of mild shortness of breaths. Patient reports: No new complaints, Feels better Changes from previous H/P or p: Changes Objective vital signs Vital Sign Date Time Temp Pulse Resp B/P (MAP) Pulse Ox O2 Delivery O2 Flow Rate FiO2 11/25/24 12:43 97.9 85 19 153/101 (118) 93 97.9 11/25/24 12:15 Room Air* 0 21 Total Intake and Output 11/24/24 11/24/24 11/25/24 15:00 23:00 07:00 Intake Total 170 ml 1612 ml 750 ml Balance 170 ml 1612 ml 750 ml medications Current Medications Medications Dose Ordered Sig/Zuleyka Route Start Time Stop Time Status Last Admin Dose Admin Acetylcysteine 200 mg Q6HR NEB 11/22/24 00:00 11/25/24 12:15 200 MG Levalbuterol HCl 0.625 mg Q6HR NEB 11/22/24 00:00 11/25/24 12:15 0.625 MG Ipratropium [place] 0.5 mg Q6HR NEB 11/22/24 00:00 11/25/24 12:15 0.5 MG Lactated Ringer's 1,000 ml @ 125 mls/hr Q8H IV 11/21/24 22:15 11/24/24 16:26 125 MLS/HR Pantoprazole Sodium 40 mg DAILY@0600 PO 11/22/24 06:00 11/25/24 05:13 40 MG Enoxaparin Sodium 40 mg DAILY SC 11/22/24 10:00 11/25/24 09:16 40 MG Ibuprofen 600 mg Q12HP PRN PO 11/21/24 23:30 Losartan Potassium 100 mg DAILY PO 11/22/24 10:00 11/25/24 09:15 100 MG Methylprednisolone Sodium Succinate 40 mg DAILY IV 11/23/24 10:00 11/25/24 09:15 40 MG Ceftriaxone Sodium 50 ml @ 100 mls/hr DAILY@09 IV 11/23/24 09:00 11/25/24 09:14 100 MLS/HR Azithromycin 250 ml @ 125 mls/hr DAILY IV 11/23/24 10:00 11/25/24 10:15 125 MLS/HR Acetaminophen 650 mg Q6HP PO 11/22/24 12:00 Hold Acetaminophen 650 mg Q6HP PRN PO 11/23/24 07:15 Amlodipine Besylate 5 mg DAILY PO 11/26/24 10:00 Examination General Appearance: Alert, Oriented X3, Cooperative, No acute distress HEENT: Atraumatic, PERRLA, EOMI, Mucous membrane moist/pink Respiratory: Bilateral mild crackles Cardiovascular: Regular rate, Normal S1, Normal S2, No murmurs, no chest wall tenderness Abdominal: Normal bowel sounds, Soft, No tenderness, No hepatospenomegaly, No masses Extremities: No clubbing, No cyanosis, No edema, Normal pulses, No tenderness/swelling Skin: No rashes, No breakdown, No significant lesion Neuro: Normal gait, Normal speech, Strength at 5/5 X4 ext, Normal tone, Sensation intact, Cranial nerves 3-12 NL, Reflexes 2+ Psych/Mental Status: Mental status NL, Mood NL laboratory and microbiology Laboratory Tests 11/25/24 06:20 Test 11/25/24 06:20 Range/Units Serum Glucose 114 H 74-106 mg/dL Microbiology Date/Time Source Procedure Growth Status 11/23/24 06:15 Knee Left Gram Stain - Final Resulted 11/23/24 06:15 Knee Left Wound Culture - Preliminary Resulted 11/23/24 06:15 Sputum Gram Stain - Final Resulted 11/23/24 06:15 Sputum Respiratory Culture - Preliminary Resulted 11/21/24 14:56 Blood Blood Culture - Preliminary NO GROWTH AFTER 72 HOURS OF INCUBATION. Resulted Labs and/or images reviewed: Labs reviewed by me, Image(s) reviewed by me Problem List/Assessment/Plan Problem List/Assessment/Plan Acute hypoxic respiratory failure, likely due to COPD exacerbation Acute COPD exacerbation, likely due to pneumonia Pneumonia, likely due to Gram-positive/Gram-negative bacteria/fungal Sepsis, likely due to pneumonia History of lung cancer , status post partial lobectomy Current smoker H/O right lung nodule Left knee pain S/p surgery for hardware removal 4 days ago done at [facility] by Dr. Carlos Eduardo kohler Ruled out osteomyelitis Cholelithiasis Primary hypertension Dyslipidemia * CT scan shows, severe centrilobular emphysema. Nodular density in the right upper lobe measures up to 2.1 cm. Multiple smaller additional nodular densities are scattered throughout both lungs, most prominent in the left upper lobe, which may reflect infectious/inflammatory process * Knee CT scan shows,No CT findings to suggest osteomyelitis Plan/recommendation * Empiric antibiotic of azithromycin, Rocephin * IV fluid/methylprednisolone/breathing treatment * Oxygen through nasal cannula * Consulted infectious disease for possible fungal infection, recommended bacteria coverage at the moment * Requested final result of previous biopsy from [facility] [place] (performed 1 month back), pending response * Consulted pulmonology, for the bronchoscopy/bronchoalveolar lavage for possible fungal pneumonia, planned for bronchoscopy for tomorrow DIET: Regular DVT PROPHYLAXIS: Lovenox GI PROPHYLAXIS:: Protonix CODE STATUS: Goal of care discussed for more than 18 minutes, full code DISPOSITION: Telemetry Patient's status and plan discussed with the patient. Case discussed with Dr. Chapin. Plan discussed with: Patient, Other (RN) My Orders My Orders Orders - DIAMANTE JIMÉNEZ RESDIKAROLINE Procedure Category Date Status Time Amlodipine Tablet PHA 11/26/24 In Process (Norvasc Tablet) 10:00 Chest Xray 1 View XY 11/25/24 Resulted 12:48 PTPTT LAB 11/25/24 In Process 12:48 Type And Screen BBK 11/25/24 In Process 12:48 Date of Service: Nov 25, 2024 Billing Provider: DYLON CHAPIN MD Common Visit Codes: [id number] INP/OBS CARE(HIGH) DIAMANTE JIMÉNEZ RESDIENT Nov 25, 2024 13:54 DYLON CHAPIN MD Nov 29, 2024 21:58
[2024-11-25 13:57] LABS: INR 0.96 (0.9-1.15); Partial Thromboplastin Time 26.8 SEC (24.5-34.5); Prothrombin Time 10.2 sec (9.3-11.8)
--- NOTE | 2024-11-25 15:50 | DVHPN2 ---
Progress Note - Dictate Date Seen: Nov 25, 2024 Has the PT tested + for MRSA If YES, has PT been informed?: No Medical Necessity Reason Pt with a Central, PICC or Fol: No vital signs Vital Sign Date Time Temp Pulse Resp B/P (MAP) Pulse Ox O2 Delivery O2 Flow Rate FiO2 11/25/24 12:43 97.9 85 19 153/101 (118) 93 97.9 11/25/24 12:15 Room Air* 0 21 Total Intake and Output 11/24/24 11/24/24 11/25/24 15:00 23:00 07:00 Intake Total 170 ml 1612 ml 750 ml Balance 170 ml 1612 ml 750 ml medications Current Medications Medications Dose Ordered Sig/Zuleyka Route Start Time Stop Time Status Last Admin Dose Admin Acetylcysteine 200 mg Q6HR NEB 11/22/24 00:00 11/25/24 12:15 200 MG Levalbuterol HCl 0.625 mg Q6HR NEB 11/22/24 00:00 11/25/24 12:15 0.625 MG Ipratropium [place] 0.5 mg Q6HR NEB 11/22/24 00:00 11/25/24 12:15 0.5 MG Lactated Ringer's 1,000 ml @ 125 mls/hr Q8H IV 11/21/24 22:15 11/24/24 16:26 125 MLS/HR Pantoprazole Sodium 40 mg DAILY@0600 PO 11/22/24 06:00 11/25/24 05:13 40 MG Enoxaparin Sodium 40 mg DAILY SC 11/22/24 10:00 11/25/24 09:16 40 MG Ibuprofen 600 mg Q12HP PRN PO 11/21/24 23:30 Losartan Potassium 100 mg DAILY PO 11/22/24 10:00 11/25/24 09:15 100 MG Methylprednisolone Sodium Succinate 40 mg DAILY IV 11/23/24 10:00 11/25/24 09:15 40 MG Ceftriaxone Sodium 50 ml @ 100 mls/hr DAILY@09 IV 11/23/24 09:00 11/25/24 09:14 100 MLS/HR Azithromycin 250 ml @ 125 mls/hr DAILY IV 11/23/24 10:00 11/25/24 10:15 125 MLS/HR Acetaminophen 650 mg Q6HP PO 11/22/24 12:00 Hold Acetaminophen 650 mg Q6HP PRN PO 11/23/24 07:15 Amlodipine Besylate 5 mg DAILY PO 11/26/24 10:00 laboratory and microbiology Laboratory Tests 11/25/24 06:20 Test 11/25/24 06:20 Range/Units Serum Glucose 114 H 74-106 mg/dL Assessment/Plan copd pulm nodule lung cancer s/p left lung resection ?pneumonia fungal abx bronchodilators bronch on friday Plan discussed with: Patient OLIVER RAMÍREZ MD Nov 25, 2024 15:50
[2024-11-26] VITALS (17 sets, daily range): BP systolic 128–150; BP diastolic 75–96; PULSE 74–96; RESP 16–22; TEMP 36.3; O2SAT 89–98
[2024-11-26 04:06] LABS: QuantiFERON-TB Gold Plus Negative (Negative)
[2024-11-26 06:37] LABS: Basophils # (auto) 0 10 ^3/uL (0-0.2); Basophils % (auto) 0.1 % (0.0-2.0); Eosinophils # (auto) 0 10 ^3/uL (0-0.8); Eosinophils % (auto) 0.2 % (0.0-7.0); Hematocrit 47.4 % (41.0-53.0); Hemoglobin 16.1 g/dL (13.5-17.5); Lymphocytes # (auto) 1.9 10 ^3/uL (0.4-5.4); Lymphocytes % (auto) 17.3 % (10.0-50.0); Mean Corpuscular Hemoglobin 30.7 pg (28.0-32.0); Mean Corpuscular Hgb Conc. 33.9 g/dL (32.0-36.0); Mean Corpuscular Volume 90.6 fL (80.0-100.0); Monocytes # (auto) 1.1 10 ^3/uL (0-1.3); Monocytes % (auto) 10.4 % (0.0-12.0); Neutrophils # (auto) 7.7 10 ^3/uL (1.6-8.6); Nucleated Red Blood Cells % 0.1 %; Platelet Count (auto) 289 10^3/uL (140-450); Red Blood Cells 5.23 10^6/uL (4.5-5.90); Red Cell Distribution Width 14.4 % (11.8-14.3); White Blood Cell 10.7 10^3/uL (4.4-10.8)
[2024-11-26 06:45] LABS: Calcium 9.3 mg/dL (8.7-10.4); Chloride 104 mmol/L (98-107); Potassium 3.9 mmol/L (3.5-5.1); Sodium 140 mmol/L (136-145)
[2024-11-26 06:46] LABS: Anion Gap 11 (5-15); Carbon Dioxide 25 mmol/L (20-31)
[2024-11-26 06:51] LABS: BUN/Creatinine Ratio 22.5 (10.0-20.0); Blood Urea Nitrogen 23 mg/dL (9-23); Glucose 103 mg/dL (74-106)
[2024-11-26] MEDS ORDERED: LIDOCAINE 2%HCL (LOCAL ANESTH.) INJ 20ML MDV ONE (08:26)
[2024-11-26] MEDS ORDERED: SODIUM CHLORIDE LOCK 10 ML ONE (08:26)
[2024-11-26] MEDS ORDERED: FLUMAZENIL 0.1 MG/ML INJ 10ML MDV IV ONE (08:26)
[2024-11-26] MEDS ORDERED: NALOXONE HCL 0.4 MG/ML VIAL ONE (08:26)
[2024-11-26] MEDS ORDERED: EPINEPHrine HCL 1 MG/1 ML AMP ONE (08:26)
[2024-11-26] MEDS ORDERED: BENZOCAINE (DENTAL) 20 % SPRAY 60ML MT ONE (08:26)
[2024-11-26] MEDS ORDERED: GLYCOPYRROLATE 0.2 MG/ML 1ML VIAL ONE (08:27)
[2024-11-26] MEDS ORDERED: diphenhdrAMINE HCL 50 MG/1 ML VL ONE (08:27)
[2024-11-26] MEDS ORDERED: LIDOCAINE HCL 2% TOP JELLY 5ML TOP ONE (08:27)
[2024-11-26] MEDS ORDERED: SIMETHICONE 40 MG/0.6 ML ORAL DROP ONE (08:28)
--- NOTE | 2024-11-26 11:37 | DVHPNRES ---
Progress Note Date Seen: Nov 26, 2024 Resident Creating Document: NATALI GUZMAN RESIDENT Has the PT tested + for MRSA If YES, has PT been informed?: No Medical Necessity Reason Pt with a Central, PICC or Fol: No Subjective Review of Systems Patient seen and examined at bedside. Patient has no concerns or complaints at this time and feels well overall. Currently on room air without any respiratory distress. Bronchoscopy we will be scheduled for today around noon. After bronchoscopy and specimen sent out to microbiology for cultures patient most likely could be discharged home and follow up with ID in two weeks. ROS Constitutional: Denies weight loss, fever and chills. HEENT: Denies changes in vision and hearing. Respiratory: Denies shortness of breath and cough Cardiovascular: Denies chest discomfort or palpitations GI: Denies abdominal pain, nausea, vomiting and diarrhea. : Denies dysuria and urinary frequency. Musculoskeletal: Denies myalgias and joint pain Skin: Denies rash and pruritus. Neurological: Denies dizziness, headache, vision or hearing problems Objective vital signs Vital Sign Date Time Temp Pulse Resp B/P (MAP) Pulse Ox O2 Delivery O2 Flow Rate FiO2 11/26/24 10:15 92 Room Air 0.0 11/26/24 10:15 21 11/26/24 09:05 97.2 74 20 144/94 (111) 97.2 Total Intake and Output 11/25/24 11/25/24 11/26/24 14:59 22:59 06:59 Intake Total 50 ml 620 ml 800 ml Balance 50 ml 620 ml 800 ml medications Current Medications Medications Dose Ordered Sig/Zuleyka Route Start Time Stop Time Status Last Admin Dose Admin Acetylcysteine 200 mg Q6HR NEB 11/22/24 00:00 11/26/24 06:57 200 MG Levalbuterol HCl 0.625 mg Q6HR NEB 11/22/24 00:00 11/26/24 06:57 0.625 MG Ipratropium [place] 0.5 mg Q6HR NEB 11/22/24 00:00 11/26/24 06:57 0.5 MG Lactated Ringer's 1,000 ml @ 125 mls/hr Q8H IV 11/21/24 22:15 11/25/24 22:15 125 MLS/HR Pantoprazole Sodium 40 mg DAILY@0600 PO 11/22/24 06:00 11/25/24 05:13 40 MG Enoxaparin Sodium 40 mg DAILY SC 11/22/24 10:00 11/25/24 09:16 40 MG Ibuprofen 600 mg Q12HP PRN PO 11/21/24 23:30 Losartan Potassium 100 mg DAILY PO 11/22/24 10:00 11/25/24 09:15 100 MG Methylprednisolone Sodium Succinate 40 mg DAILY IV 11/23/24 10:00 11/26/24 09:51 40 MG Ceftriaxone Sodium 50 ml @ 100 mls/hr DAILY@09 IV 11/23/24 09:00 11/26/24 09:51 100 MLS/HR Azithromycin 250 ml @ 125 mls/hr DAILY IV 11/23/24 10:00 11/26/24 09:51 125 MLS/HR Acetaminophen 650 mg Q6HP PO 11/22/24 12:00 Hold Acetaminophen 650 mg Q6HP PRN PO 11/23/24 07:15 Amlodipine Besylate 5 mg DAILY PO 11/26/24 10:00 Examination Physical Examination General: Patient alert and oriented in person, place and time. Patient following commands. HEENT: Normocephalic, atraumatic, moist mucous membranes Respiratory/pulmonary: There is decreased breath sounds bilaterally with expiratory secretion sounds. No wheezes currently on room air. Cardiovascular: Normal heart sounds S1 and S2 with no associated murmurs Abdomen: Abdomen nondistended, there is no pain to palpation in any of the abdominal quadrants, no palpable masses. Extremities: Left knee has a bandage with no secretions or erythema at this time. There is no peripheral edema present at the lower extremities. Skin: No rashes or pruritus, there is no sacral edema present at this time. Neurological: Intact cranial nerves with no focal neurologic deficits laboratory and microbiology Laboratory Tests 11/26/24 06:05 Test 11/26/24 06:05 Range/Units Serum Glucose 103 74-106 mg/dL Microbiology Date/Time Source Procedure Growth Status 11/23/24 06:15 Knee Left Gram Stain - Final Resulted 11/23/24 06:15 Knee Left Wound Culture - Preliminary Resulted 11/23/24 06:15 Sputum Gram Stain - Final Resulted 11/23/24 06:15 Sputum Respiratory Culture - Preliminary Resulted 11/21/24 14:56 Blood Blood Culture - Preliminary NO GROWTH AFTER 72 HOURS OF INCUBATION. 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 There is also a nodular densities in the right upper lobe measuring up to 2.1 cm. There are multiple smaller additional nodular densities throughout both lungs. -ordered sputum cultures -continue IV antibiotics ceftriaxone azithromycin -continue methylprednisolone 40 mg IV Qd -order QuantiFERON gold test -check HIV -order Coccidioides antibodies, Aspergillus antibody. Still pending reports -Documents were faxed and reviewed. unable to see cultures of the biopsy. -Called [facility] and there were no cultures done at that time -bronchoscopy we will be scheduled for today, after bronchoscopy and specimen sent out to microbiology for cultures, patient most likely could be discharged home and follow-up with Infectious Disease in two weeks. -Continue current management per primary team. Goals of care discussed with the patient at bedside for >35min, FULL CODE Plan discussed with Dr. Butler Plan discussed with: Patient NATALI GUZMAN RESIDENT Nov 26, 2024 11:37
[2024-11-26] MEDS: fentaNYL CITRATE 100 MCG/2 ML VL ONE (13:23)
[2024-11-26] MEDS: MIDAZOLAM HCL 5 MG/ML-1ML VIAL ONE (13:23)
[2024-11-26] MEDS: LEVALBUTEROL HCL 1.25 MG/3 ML NEB NEB ONE (14:00)
--- NOTE | 2024-11-26 14:05 | DVHPN2 ---
Progress Note - Dictate Date Seen: Nov 26, 2024 Has the PT tested + for MRSA If YES, has PT been informed?: No Medical Necessity Reason Pt with a Central, PICC or Fol: No vital signs Vital Sign Date Time Temp Pulse Resp B/P (MAP) Pulse Ox O2 Delivery O2 Flow Rate FiO2 11/26/24 13:40 97.4 89 19 143/86 (105) 93 97.4 11/26/24 12:01 Room Air* 0 21 Total Intake and Output 11/25/24 11/25/24 11/26/24 15:00 23:00 07:00 Intake Total 50 ml 620 ml 800 ml Balance 50 ml 620 ml 800 ml medications Current Medications Medications Dose Ordered Sig/Zuleyka Route Start Time Stop Time Status Last Admin Dose Admin Acetylcysteine 200 mg Q6HR NEB 11/22/24 00:00 11/26/24 12:01 200 MG Levalbuterol HCl 0.625 mg Q6HR NEB 11/22/24 00:00 11/26/24 12:01 0.625 MG Ipratropium [place] 0.5 mg Q6HR NEB 11/22/24 00:00 11/26/24 12:01 0.5 MG Lactated Ringer's 1,000 ml @ 125 mls/hr Q8H IV 11/21/24 22:15 11/25/24 22:15 125 MLS/HR Pantoprazole Sodium 40 mg DAILY@0600 PO 11/22/24 06:00 11/25/24 05:13 40 MG Enoxaparin Sodium 40 mg DAILY SC 11/22/24 10:00 11/25/24 09:16 40 MG Ibuprofen 600 mg Q12HP PRN PO 11/21/24 23:30 Losartan Potassium 100 mg DAILY PO 11/22/24 10:00 11/25/24 09:15 100 MG Methylprednisolone Sodium Succinate 40 mg DAILY IV 11/23/24 10:00 11/26/24 09:51 40 MG Ceftriaxone Sodium 50 ml @ 100 mls/hr DAILY@09 IV 11/23/24 09:00 11/26/24 09:51 100 MLS/HR Azithromycin 250 ml @ 125 mls/hr DAILY IV 11/23/24 10:00 11/26/24 09:51 125 MLS/HR Acetaminophen 650 mg Q6HP PO 11/22/24 12:00 Hold Acetaminophen 650 mg Q6HP PRN PO 11/23/24 07:15 Amlodipine Besylate 5 mg DAILY PO 11/26/24 10:00 laboratory and microbiology Laboratory Tests 11/26/24 06:05 Test 11/26/24 06:05 Range/Units Serum Glucose 103 74-106 mg/dL Assessment/Plan copd pulm nodule lung cancer s/p left lung resection ?pneumonia fungal events s/p bronchoscopy today sample obtained for gram atain and fungal cx ok to dc i'll follow up in november also f/up with Dr Butler, ID Plan discussed with: Patient OLIVER RAMÍREZ MD Nov 26, 2024 14:05
--- NOTE | 2024-11-26 14:11 | DVHNC2 ---
Procedure - Procedure bronchoscopy and bronchial washings/endobronchial biopsy Indication #PNEUMONIA Procedure in detail Consent Obtained and time-out performed per protocol Sedation fentanyl 50 mcg IV and Versed 2 mg IV Right nasal approach. Topical anesthesia lidocaine 2% 10 cc above the cords And 2% 10 cc below the cords Flexible scope passed through the vocal cords and tracheobronchial tree was examined They were secretions bilaterally which were thoroughly suctioned. Because of the appeared friable. There was a left upper lobe stump with friable mucosa h two endobronchial biopsy samples were obtained with minor bleeding which stopped spontaneously. At the end of the procedure scope was removed OLIVER RAMÍREZ MD Nov 26, 2024 14:11
[2024-11-26] MEDS: amLODIPine BESYLATE 5 MG TAB PO SCH (14:45)
--- NOTE | 2024-11-26 15:08 | DVHDSRES ---
Discharge Summary Date of Admission Resident Creating Document: NATALI GUZMAN RESIDENT Nov 21, 2024 at 22:01 Date of Discharge: Nov 26, 2024 Labs/Diagnostic Data: Laboratory Results Test 11/26/24 06:05 11/25/24 13:10 11/23/24 05:01 11/22/24 19:48 White Blood Count 10.7 10^3/uL (4.4-10.8) Red Blood Count 5.23 10^6/uL (4.5-5.90) Hemoglobin 16.1 g/dL (13.5-17.5) Hematocrit 47.4 % (41.0-53.0) Mean Corpuscular Volume 90.6 fL (80.0-100.0) Mean Corpuscular Hemoglobin 30.7 pg (28.0-32.0) Mean Corpuscular Hemoglobin Concent 33.9 g/dL (32.0-36.0) Red Cell Distribution Width 14.4 % (11.8-14.3) Platelet Count 289 10^3/uL (140-450) Mean Platelet Volume 7.4 fL (6.9-10.8) Neutrophils (%) (Auto) 72.0 % (37.0-80.0) Lymphocytes (%) (Auto) 17.3 % (10.0-50.0) Monocytes (%) (Auto) 10.4 % (0.0-12.0) Eosinophils (%) (Auto) 0.2 % (0.0-7.0) Basophils (%) (Auto) 0.1 % (0.0-2.0) Neutrophils # (Auto) 7.7 10 ^3/uL (1.6-8.6) Lymphocytes # (Auto) 1.9 10 ^3/uL (0.4-5.4) Monocytes # (Auto) 1.1 10 ^3/uL (0-1.3) Eosinophils # (Auto) 0 10 ^3/uL (0-0.8) Basophils # (Auto) 0 10 ^3/uL (0-0.2) Nucleated Red Blood Cells 0.1 % Sodium Level 140 mmol/L (136-145) Potassium Level 3.9 mmol/L (3.5-5.1) Chloride Level 104 mmol/L (98-107) Carbon Dioxide Level 25 mmol/L (20-31) Anion Gap 11 (5-15) Blood Urea Nitrogen 23 mg/dL (9-23) Creatinine 1.02 mg/dL (0.700-1.30) Glomerular Filtration Rate Calc 77 mL/min (>90) BUN/Creatinine Ratio 22.5 (10.0-20.0) Serum Glucose 103 mg/dL (74-106) Calcium Level 9.3 mg/dL (8.7-10.4) Prothrombin Time 10.2 sec (9.3-11.8) Prothrombin Time INR 0.96 (0.9-1.15) Activated Partial Thromboplast Time 26.8 SEC (24.5-34.5) Miscellaneous [facility] Test [facility]Refrg[facility] ([facility]) Gold Plus Negative (Negative) TB Test (QFT) Nil 0.01 IU/mL (.) TB Test (QFT) Mitogen >10.00 IU/mL (.) TB Test (QFT) Antigen 1 0.01 IU/mL (.) TB Test (QFT) Antigen 2 0.02 IU/mL (.) TB Test (QFT) Criteria Comment (.) Test 11/22/24 09:40 11/22/24 01:25 11/21/24 16:57 11/21/24 15:26 Total Bilirubin 2.1 mg/dL (0.2-1.0) Aspartate Amino Transferase (AST) 11 U/L (<34) Alanine Aminotransferase (ALT) < 9 U/L (7-40) Alkaline Phosphatase 134 U/L (46-116) Total Protein 6.1 g/dL (5.7-8.2) Albumin 3.9 g/dL (3.2-4.8) HIV (1&2) Antibody Negative (Negative) Influenza Type A Antigen Negative (Negative) Influenza Type B Antigen Negative (Negative) SARS-CoV-2 Antigen (Rapid) Negative (NEGATIVE) Lactic Acid Level 1.9 mmol/L (0.4-2.0) Urine Color Light-yellow (Yellow) Urine Clarity Clear (Clear) Urine pH 7.0 (5.0-9.0) Urine Specific [place] > 1.050 (1.001-1.035) Urine Protein Negative (Negative) Urine Ketones Negative (Negative) Urine Blood Negative /uL (Negative) Urine Nitrite Negative (Negative) Urine Bilirubin Negative (Negative) Urine Urobilinogen Normal mg/dL (Negative) Urine Leukocyte Esterase Negative /uL (Negative) Urine RBC 1 /hpf (0 - 3) Urine Microscopic WBC 1 /HPF (0-3) Urine Squamous Epithelial Cells Few /hpf (<5) Urine Bacteria None seen /hpf (None Seen) Urine Glucose Normal mg/dL (Normal) Test 11/21/24 11:35 Troponin I High Sensitivity 7 ng/L (</=54) Other Laboratory Tests 11/26/24 06:05 Brief Hx & Hospital Course: HISTORY OF PRESENT ILLNESS: Patient is a 74-year-old male with a past medical history of COPD, emphysema, 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 Patient reported that he has been feeling short of breath since 1 month ago but it exacerbated in the last 3-4 days with shortness of breath even on less than normal activity ,Functional Class III. Patient reported associated fever and chills in the last 2 days maximum recorded 102 F. he also reports expectoration grayish to brownish black in color which has been ongoing since the last 1 month and the color, consistency in the last 3-4 days remained same but with the amount of expectoration increased. Patient reports a month ago he was diagnosed with a right lung nodule and he underwent a biopsy at [facility] which showed extensive necrosis with interstitial lymphohistiocytic inflammation with granuloma and rare atypical cells. GMS stain also showed growth of some fungi. Patient last saw his custom miller Dr. Fried who recommended the patient to see a specialist at [facility] and his next appointment with the [facility] custom miller is in December. Patient reported that last year in May he fractured his left kneecap following which he had a surgery with the wires in place were put in and about 4 days ago he got a surgery during which some of the hardware was removed. Patient reports tenderness around the left knee around the area of the surgery, there is no oozing. Past medical history: As per HPI Past surgical history: Partial lung lobectomy status post squamous cell carcinoma of the lung, left knee surgery x2 Social history: Patient denied current smoking, alcohol, drug use Home medications: Trelegy Ellipta inhaler, losartan 100 mg, hydrochlorothiazide 25 mg, Ventolin inhaler HOSPITAL COURSE: PATIENT WAS ADMITTED AT THE LINE OF ACUTE HYPOXIC RESPIRATORY FAILURE, LIKELY DUE TO COPD EXACERBATION/PNEUMONIA. THE PATIENT WAS STARTED ON EMPIRIC ANTIBIOTIC OF AZITHROMYCIN, ROCEPHIN, IV FLUID, METHYLPREDNISOLONE HYPERTENSION. CT scan shows, severe centrilobular emphysema. Nodular density in the right upper lobe measures up to 2.1 cm. Multiple smaller additional nodular densities are scattered throughout both lungs, most prominent in the left upper lobe, which may reflect infectious/inflammatory process. Patient had underwent lung biopsy 1 month back, the primary results showed fundi on staining. Upon contacted the [facility], could not get final results of microbiology. Pulmonology was consulted, recommended bronchoscopy. Bronchoscopy was performed and sample was taken of the bronchoalveolar lavage were culture and sensitivity, the patient is supposed to follow up the result on clinic. Due to previous results of possible fungal pneumonia, Infectious Disease was consulted, recommended antibacterial coverage and would cover with antifungal of the culture and sensitivity with the results. During hospital course, the patient was given oxygen through nasal cannula. Due to knee pain, knee CT scan performed, showed no findings suggestive of osteomyelitis, the patient was treated conservatively. On 11/26/2024, the patient was feeling better since admission, discharge plan discussed with the patient the patient discharged home. DISCHARGE PLAN: Follow up with the PCP within 1 week of the discharge. Follow up with the infectious disease doctor on outpatient basis. Follow up with the pulmonology on outpatient basis. Follow up with the discharge Clinic within 14 days and we will check the alveolar lavage culture results in clinic with the patient. Augmentin twice daily for 5 days Azithromycin 500 mg daily for 5 days Continue meds FINAL DIAGNOSIS: Acute hypoxic respiratory failure, likely due to COPD exacerbation Acute COPD exacerbation, likely due to pneumonia Pneumonia, likely due to Gram-positive/Gram-negative bacteria/fungal Sepsis, likely due to pneumonia Right upper lobe nodule measuring 2.1cm History of lung cancer , status post partial lobectomy Current smoker H/O right lung nodule Left knee pain S/p surgery for hardware removal 4 days ago done at [facility] by Dr. Carlos Eduardo kohler Ruled out osteomyelitis Cholelithiasis Primary hypertension Dyslipidemia Condition at Discharge: Good Final Diagnosis/Problems List . Discharge Disposition: Home Discharge Instruct/Medications Diet: Regular Activity: No Restrictions, As Tolerated Follow Up/Referral: Follow up with the PCP within 1 week of the discharge. Follow up with the pulmonology on outpatient basis. Follow up with the Infectious doctor on outpatient basis. Follow up with the discharge Clinic within 1 week of the discharge. Medications: Azithromycin 500 mg daily for 5 days Augmentin twice daily for 5 days Continue home meds Discharge Statement: "Patient was advised to return to the ER or call 911 if any headaches, dizziness, shortness of breath, chest pain, abdominal pain, bleeding, fevers, or worsening of medical condition. Patient was counseled about treatment plan, medications, possible side effects, patientverbalized understanding. All questions were answered to the best of my ability. This discharge took greater then 30 minutes in planning, reviewing documentation, counseling the patient, and discussing with other team members." ASSESSMENT ASSESSMENT Assessment Pneumonia Date of Service: Nov 26, 2024 Billing Provider: DYLON CHAPIN MD Common Visit Codes: 02829-LFH/OBS DISCH DAY >30min DIAMANTE JIMÉNEZ RESDIENT Nov 26, 2024 15:08 DYLON CHAPIN MD Nov 29, 2024 22:12
[2024-11-26] MEDS ORDERED: AZIT500T66 PO (15:39)
[2024-11-26] MEDS ORDERED: AUG875T PO (15:39)
[2024-11-27 21:06] LABS: Coccidioides CF Antibody <1:2 (<1:2)
[2024-11-28 09:07] LABS: Aspergillus flavus Negative (Neg:<1:1); Aspergillus fumigatus Negative (Neg:<1:1); Aspergillus niger Negative (Neg:<1:1)
== END 2024-11-26 16:10 | disposition home or self-care (01) | DRG 853 ==
LOC: ER 11:11 → OVERFLOW 22:01 → TELE-WESTW 22:24
PROVIDERS: ADMIT Student in an Organized Health Care Education/Training Program; ATTEND Student in an Organized Health Care Education/Training Program
PROC: 0B9M8ZZ Drainage of Bilateral Lungs, Via Natural or Artificial Opening Endoscopic (ICD-10-PCS; 2024-11-26)
PROC: 0BBG8ZX Excision of Left Upper Lung Lobe, Via Natural or Artificial Opening Endoscopic, Diagnostic (ICD-10-PCS; principal; 2024-11-26 13:15)
DX: A41.9 Sepsis, unspecified organism (principal); J15.69 Pneumonia due to other Gram-negative bacteria; J96.01 Acute respiratory failure with hypoxia; J15.9 Unspecified bacterial pneumonia; J44.0 Chronic obstructive pulmonary disease with (acute) lower respiratory infection; J44.1 Chronic obstructive pulmonary disease with (acute) exacerbation; K80.20 Calculus of gallbladder without cholecystitis without obstruction; Z20.822 Contact with and (suspected) exposure to COVID-19; J43.2 Centrilobular emphysema; J98.4 Other disorders of lung; Z80.7 Family history of other malignant neoplasms of lymphoid, hematopoietic and related tissues; Z83.3 Family history of diabetes mellitus; Z85.118 Personal history of other malignant neoplasm of bronchus and lung
CPT/HCPCS: 31622; 31625; 36415; 71045; 71275; 73700; 80048; 80053; 81001; 82785; 83605; 84484; 85025; 85610; 85730; 86606; 86635; 86703; 86850; 86900; 86901; 87040; 87070; 87077; 87205; 87426; 87804; 93005; 94640; 96365; 99291; G0378; J0171; J2250